=== PATIENT | female | born 1940 | race Caucasian/White ===

== ENCOUNTER 2019-07-30 10:09 | Inpatient (IN) | payer MEDICARE ==
[2019-07-30] VITALS (7 sets, daily range): BP systolic 100–111; BP diastolic 58–73
[~2019-07-30] VITALS: Ht 160 cm; Wt 49.7 kg
[2019-07-30] MEDS ORDERED: LIDOcaine 1% w/EPI 1:200,000 injection 10mL vial IM ONE (10:10)
[2019-07-30] MEDS ORDERED: TETanus/Pertussis (Acell)/Diphther VAC/PF (Tdap-Adult) 0.5ml syringe IM ONE (10:10)
[2019-07-30 10:25] LABS: BASOPHILS % (AUTO) 0.3 % (0-1); EOSINOPHILS % (AUTO) 0 % (0-6); HEMATOCRIT 40.6 % (35.0-45.0); HEMOGLOBIN 13.2 g/dl (12.0-16.0); LYMPHOCYTES # (AUTO) 2.4 X10'3 (1.1-4.8); LYMPHOCYTES % (AUTO) 16.1 % (21-51); MEAN CORPUSCULAR HEMOGLOBIN 31.7 PG (27.0-31.0); MEAN CORPUSCULAR HGB CONC 32.5 g/dL (33.0-36.5); MEAN CORPUSCULAR VOLUME 97.5 FL (78-98); MEAN PLATELET VOLUME 9.2 FL (7.4-10.4); MONOCYTES # (AUTO) 1.1 X10'3 (0-0.9); MONOCYTES % (AUTO) 7.3 % (2-12); NEUTROPHILS # (AUTO) 11.4 X10'3 (1.8-7.7); NEUTROPHILS % (AUTO) 76.3 % (42-75); PLATELET COUNT 360 X10'3 (140-440); RED BLOOD COUNT 4.16 X10'6 (4.20-5.60); RED CELL DISTRIBUTION WIDTH 13.7 % (11.5-14.5)
[2019-07-30 10:37] LABS: PARTIAL THROMBOPLASTIN TIME 22 SECONDS (22-32)
[2019-07-30 10:40] LABS: ALANINE AMINOTRANSFERASE 76 U/L (12-78); ALBUMIN 3.1 G/DL (3.4-5.0); ALBUMIN/GLOBULIN RATIO 0.8 (1.1-1.5); ALKALINE PHOSPHATASE 126 IU/L (46-116); ANION GAP 16 (8-16); ASPARTATE AMINO TRANSFERASE 52 U/L (10-37); BILIRUBIN,TOTAL 0.5 MG/DL (0.1-1.0); BLOOD UREA NITROGEN 21 MG/DL (7-18); BUN/CREATININE RATIO 16.8 (6.6-38.0); CALCIUM 8.8 MG/DL (8.5-10.1); CHLORIDE 101 MMOL/L (99-107); CREATININE 1.25 MG/DL (0.40-0.90); GLUCOSE 218 MG/DL (70-104); POTASSIUM 4.1 MMOL/L (3.5-5.1); SODIUM 138 MMOL/L (135-145); TOTAL PROTEIN 7.2 G/DL (6.4-8.2); eGFR 41 ML/MIN
[2019-07-30] MEDS ORDERED: azithromycin 250mg tablet PO ONE (11:40)
[2019-07-30] MEDS ORDERED: CefTRIAXone 2gm/D5W 50ml 50 ML IV ONE (11:40)
[2019-07-30 12:31] LABS: HEMOGLOBIN A1C 5.7 % (4.5-6.2)
[2019-07-30] MEDS ORDERED: mag hydrox/Alum hydrox/simeth 30ml oral suspension PO PRN (12:35)
[2019-07-30] MEDS ORDERED: guaiFENesin/DM/phenylephrine syrup 120ml bottle PO PRN (12:35)
[2019-07-30] MEDS ORDERED: magnesium Cl slow-release 64mg tablet PO PRN (12:35)
[2019-07-30] MEDS ORDERED: morphine 2 MG/ML inj. syringe IV PRN (12:35)
[2019-07-30] MEDS ORDERED: HYDROcodone/acetaminophen 5mg/325mg tablet PO PRN (12:35)
[2019-07-30] MEDS ORDERED: magnesium 4gm in 100ml NS 100 ML IV PRN (12:35)
[2019-07-30] MEDS ORDERED: potassium Cl 20 mEq SR tablet PO PRN ×2 (12:35)
[2019-07-30] MEDS ORDERED: potassium CL 10mEq/100ml bag 100 ML IV PRN ×2 (12:35)
[2019-07-30] MEDS ORDERED: magnesium 2GM in 50ml NS 50 ML IV PRN (12:35)
[2019-07-30] MEDS ORDERED: ondansetron/PF 4mg/2ml inj IV PRN (12:35)
[2019-07-30] MEDS ORDERED: acetaminophen 325mg tablet PO PRN ×2 (12:35)
[2019-07-30] MEDS ORDERED: ASPI-974 PO (12:53)
[2019-07-30] MEDS: normal saline 1000ml 1,000 ML IV SCH (12:54)
[2019-07-30 13:27] LABS: CLARITY,URINE SLIGHTLY CLOUDY (Clear); COLOR,URINE YELLOW (Yellow); GLUCOSE, URINE NEGATIVE (Neg); KETONES,URINE NEGATIVE (Neg); LEUKOCYTE ESTERASE ,URINE NEGATIVE (Neg); NITRITES, URINE NEGATIVE (Neg); OCCULT BLOOD,URINE NEGATIVE (Neg); PROTEIN,URINE 100 mg/dl (Neg); UROBILINOGEN,URINE 0.2 E.U/dL (0.2-1.0)
[2019-07-30 13:28] LABS: UA COLLECTION TYPE CLN CATCH MIDSTREAM
[2019-07-30 13:39] LABS: BACTERIA,URINE FEW /HPF (Neg); RBC,URINE NONE SEEN /HPF (0-2)
[2019-07-30 13:41] LABS: SQUAMOUS EPITHELIAL CELL,UR FEW /LPF (FEW)
[2019-07-30 13:42] LABS: CELLULAR CAST 0-4 /LPF (NEGATIVE); HYALINE CASTS >30 /LPF (NEGATIVE); MUCUS STRANDS NONE SEEN /LPF (Neg)
--- NOTE | 2019-07-30 15:07 | NUR ---
Patient in room ED 5. I have received report from Shantel PEDROZA and had the opportunity to ask questions and assume patient care.
--- NOTE | 2019-07-30 18:00 | NUR ---
Patient in room ORTHO 4021. I have received report from MANNY and had the opportunity to ask questions and assume patient care.
--- NOTE | 2019-07-30 18:29 | NUR ---
Problems reprioritized. Patient report given, questions answered & plan of care reviewed with Felisha PEDROZA.
--- NOTE | 2019-07-30 18:50 | NUR ---
Dr. Anthony has been called regarding pt. Lactic acid off 4.8 . said to monitor pt. keep her on fluids NS 50 ml/h.We will continue with pt. care.
[2019-07-30] MEDS: lactobacillus rhamnosus 10,000 MMU CELLS/CAPSULE PO SCH (20:18)
[2019-07-30] MEDS: docusate sod 100mg capsule PO SCH (20:19)
[2019-07-30] MEDS: heparin, porcine 5000 units/ml vial SQ SCH (20:20)
[2019-07-30] MEDS ORDERED: temazepam 15mg capsule PO PRN (21:00)
[2019-07-30] MEDS: albuterol 2.5 MG/3 ML nebule NEB SCH (21:24)
--- NOTE | 2019-07-30 22:32 | NUR ---
Problems reprioritized. Patient report given, questions answered & plan of care reviewed with
--- NOTE | 2019-07-30 22:50 | NUR ---
Gave report to shira ricci, xfer pt via w/c with belongings to room 0611u.
--- NOTE | 2019-07-30 22:50 | NUR ---
pt arived to unit with all belongings, tele still on prior to transfer will change to on unit tele, VS stable, oriented pt to room
[2019-07-31] VITALS (7 sets, daily range): BP systolic 90–128; BP diastolic 48–87
[2019-07-31] MEDS: albuterol 2.5 MG/3 ML nebule NEB SCH ×4 (02:00→20:38)
--- NOTE | 2019-07-31 02:20 | NUR ---
I have reviewed and agree with Jovon Oshea RN assessment.
[2019-07-31 05:22] LABS: BASOPHILS % (AUTO) 0.2 % (0-1); EOSINOPHILS % (AUTO) 0 % (0-6); HEMATOCRIT 38.1 % (35.0-45.0); HEMOGLOBIN 12.4 g/dl (12.0-16.0); LYMPHOCYTES # (AUTO) 1.6 X10'3 (1.1-4.8); LYMPHOCYTES % (AUTO) 12.5 % (21-51); MEAN CORPUSCULAR HEMOGLOBIN 32.1 PG (27.0-31.0); MEAN CORPUSCULAR HGB CONC 32.6 g/dL (33.0-36.5); MEAN CORPUSCULAR VOLUME 98.4 FL (78-98); MEAN PLATELET VOLUME 9.6 FL (7.4-10.4); MONOCYTES # (AUTO) 1.4 X10'3 (0-0.9); MONOCYTES % (AUTO) 10.8 % (2-12); NEUTROPHILS # (AUTO) 9.7 X10'3 (1.8-7.7); NEUTROPHILS % (AUTO) 76.5 % (42-75); PLATELET COUNT 349 X10'3 (140-440); RED BLOOD COUNT 3.88 X10'6 (4.20-5.60); RED CELL DISTRIBUTION WIDTH 13.6 % (11.5-14.5); WHITE BLOOD COUNT 12.6 X10'3 (4.5-11.0)
[2019-07-31 05:46] LABS: ALBUMIN 2.8 G/DL (3.4-5.0); ANION GAP 12 (8-16); BLOOD UREA NITROGEN 26 MG/DL (7-18); BUN/CREATININE RATIO 22.8 (6.6-38.0); CALCIUM 8.8 MG/DL (8.5-10.1); CHLORIDE 106 MMOL/L (99-107); CREATININE 1.14 MG/DL (0.40-0.90); GLUCOSE 156 MG/DL (70-104); MAGNESIUM 2.2 MG/DL (1.5-2.4); POTASSIUM 4.6 MMOL/L (3.5-5.1); SODIUM 140 MMOL/L (135-145); TOTAL CARBON DIOXIDE 22.5 MMOL/L (24-32); eGFR 46 ML/MIN
--- NOTE | 2019-07-31 06:10 | NUR ---
Patient in room PCU 3025. I have received report from Wes RN and had the opportunity to ask questions and assume patient care.
--- NOTE | 2019-07-31 06:41 | NUR ---
Problems reprioritized. Patient report given, questions answered & plan of care reviewed with Lawrence Valencia RN.
[2019-07-31] MEDS: docusate sod 100mg capsule PO SCH ×2 (08:00→20:00)
[2019-07-31] MEDS ORDERED: aspirin 325mg tablet PO SCH (08:00)
[2019-07-31] MEDS: K and/or MAG REPLACEMENT MC SCH (08:00)
[2019-07-31] MEDS: lactobacillus rhamnosus 10,000 MMU CELLS/CAPSULE PO SCH ×2 (08:26→20:20)
[2019-07-31] MEDS: CefTRIAXone 2gm/D5W 50ml 50 ML IV SCH (08:27)
[2019-07-31] MEDS: normal saline 1000ml 1,000 ML IV SCH (08:35)
[2019-07-31] MEDS: heparin, porcine 5000 units/ml vial SQ SCH ×2 (09:06→20:21)
[2019-07-31] MEDS ORDERED: metoprolol tartrate 1mg/ml inj IV ONE (10:00)
[2019-07-31] MEDS ORDERED: adenosine 3mg/ml 2ml vial IV ONE (10:00)
--- NOTE | 2019-07-31 18:10 | NUR ---
Problems reprioritized. Patient report given, questions answered & plan of care reviewed with Emilio PEDROZA.
--- NOTE | 2019-07-31 18:50 | NUR ---
Patient in room PCU 4769X. I have received report from KASIA Bravo and had the opportunity to ask questions and assume patient care. Pt is Al 7 O X4, denies CP, dizziness, n/v, rated pain 0/10. 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 Will continue to monitor
--- NOTE | 2019-07-31 23:03 | NUR ---
Patient is being transferred to [facility]. Provided report to KASIA Chairez. Pt is alert and oriented X4, and in stable condition at time of transfer.
--- NOTE | 2019-07-31 23:10 | NUR ---
Patient in room MED 308. I have received report from PRESSING MACHINE OPERATOR and had the opportunity to ask questions and assume patient care. pt arrived to unit via wheelchair, no distress noted. tucked in bed, fall precautions maintained.
[2019-08-01] VITALS (16 sets, daily range): BP systolic 97–122; BP diastolic 52–81
[2019-08-01] MEDS: albuterol 2.5 MG/3 ML nebule NEB SCH ×5 (03:00→21:23)
[2019-08-01] MEDS: normal saline 1000ml 1,000 ML IV SCH ×2 (05:04→16:03)
[2019-08-01 05:35] LABS: BASOPHILS % (AUTO) 0.2 % (0-1); EOSINOPHILS % (AUTO) 0 % (0-6); HEMATOCRIT 36.4 % (35.0-45.0); HEMOGLOBIN 11.9 g/dl (12.0-16.0); LYMPHOCYTES # (AUTO) 2.3 X10'3 (1.1-4.8); LYMPHOCYTES % (AUTO) 16.2 % (21-51); MEAN CORPUSCULAR HEMOGLOBIN 31.7 PG (27.0-31.0); MEAN CORPUSCULAR HGB CONC 32.6 g/dL (33.0-36.5); MEAN CORPUSCULAR VOLUME 97.2 FL (78-98); MEAN PLATELET VOLUME 9.6 FL (7.4-10.4); MONOCYTES # (AUTO) 1.7 X10'3 (0-0.9); MONOCYTES % (AUTO) 12.3 % (2-12); NEUTROPHILS % (AUTO) 71.3 % (42-75); PLATELET COUNT 337 X10'3 (140-440); RED BLOOD COUNT 3.75 X10'6 (4.20-5.60); RED CELL DISTRIBUTION WIDTH 13.4 % (11.5-14.5)
--- NOTE | 2019-08-01 06:00 | NUR ---
Patient in room CICU 2013. I have received report from Salma PEDROZA and had the opportunity to ask questions and assume patient care.
[2019-08-01 06:06] LABS: ALBUMIN 2.8 G/DL (3.4-5.0); ANION GAP 13 (8-16); BLOOD UREA NITROGEN 40 MG/DL (7-18); BUN/CREATININE RATIO 31.3 (6.6-38.0); CALCIUM 8.4 MG/DL (8.5-10.1); CHLORIDE 101 MMOL/L (99-107); CREATININE 1.28 MG/DL (0.40-0.90); GLUCOSE 133 MG/DL (70-104); MAGNESIUM 2.2 MG/DL (1.5-2.4); POTASSIUM 4.6 MMOL/L (3.5-5.1); SODIUM 136 MMOL/L (135-145); TOTAL CARBON DIOXIDE 21.8 MMOL/L (24-32); eGFR 40 ML/MIN
--- NOTE | 2019-08-01 07:30 | NUR ---
Patient up to commode. States "I don't feel like I'm going to make it through the night" asked why patient felt that way but she was unable to verbalize.Denied chest pain. Visibly SOB upon return to bed, unable to lie flat or lean back with HOB in high folwers. HR SVT at 140-150. Charge nurse in to assess patient and it was decided that MD needed to be called to bedside.
--- NOTE | 2019-08-01 07:43 | NUR ---
PAGER ID: [phone] MESSAGE: [phone]: MARIPOSA - CAN YOU COME TO BEDSIDE. POSSIBLE RAPID RESPONSE. TY NURSE ADELINA/CHEL [id number]
--- NOTE | 2019-08-01 07:49 | NUR ---
RESPIRATORY PAGED FOR BREATHING TREATMENT
[2019-08-01] MEDS: K and/or MAG REPLACEMENT MC SCH (08:00)
[2019-08-01] MEDS: docusate sod 100mg capsule PO SCH ×2 (08:00→19:54)
[2019-08-01] MEDS: metoprolol tartrate 1mg/ml inj IV SCH ×2 (08:00→08:13)
[2019-08-01] MEDS: heparin, porcine 5000 units/ml vial SQ SCH (08:00)
[2019-08-01] MEDS: lactobacillus rhamnosus 10,000 MMU CELLS/CAPSULE PO SCH (08:00)
[2019-08-01] MEDS: CefTRIAXone 2gm/D5W 50ml 50 ML IV SCH (08:00)
[2019-08-01] MEDS ORDERED: metoprolol tartrate 1mg/ml inj IV ONE (08:15)
--- NOTE | 2019-08-01 08:30 | NUR ---
PAGER ID: [phone] MESSAGE: [phone]: MARIPOSA - NEED YOU AT BEDSIDE AGAIN. NELDA ORDERED MORE ADENOSINE. TY
--- NOTE | 2019-08-01 08:36 | NUR ---
PAGER ID: [phone] MESSAGE: [phone]: MARIPOSA - WE NEED YOU AT BEDSIDE PLEASE. TY
--- NOTE | 2019-08-01 08:40 | NUR ---
PAGER ID: [phone] MESSAGE: [phone]: MARIPOSA - PLEASE TO BEDSIDE NOW. TY
[2019-08-01] MEDS ORDERED: amiodarone 150mg/dext, iso-os 100 ML IV ONE (09:00)
[2019-08-01] MEDS: amiodarone/D5 360MG/200ML BAG 200 ML IV SCH ×3 (09:10→19:54)
--- NOTE | 2019-08-01 09:50 | NUR ---
Patient transported to ICU.
--- NOTE | 2019-08-01 09:50 | NUR ---
Problems reprioritized. Patient report given, questions answered & plan of care reviewed with Radha PEDROZA.
[2019-08-01] MEDS: insulin regular, human 100 UNIT in normal saline 100ml IV soln 100 ML IV SCH ×2 (09:52)
[2019-08-01] MEDS ORDERED: magnesium 2GM in 50ml NS 50 ML IV PRN ×2 (09:55→12:20)
[2019-08-01] MEDS ORDERED: potassium Cl 20mEq/100mL bag 100 ML IV PRN (09:55)
[2019-08-01] MEDS ORDERED: gabapentin 400mg capsule PO ONE (09:55)
[2019-08-01] MEDS ORDERED: magnesium 4gm in 100ml NS 100 ML IV PRN ×2 (09:55→12:20)
[2019-08-01] MEDS ORDERED: potassium Cl 20 mEq SR tablet PO PRN ×2 (09:55→12:20)
[2019-08-01] MEDS ORDERED: MALTODEXTRIN/FRUCTOSE 0.68 KCAL/ML LIQUID 296ML BOTTLE PO ONE (09:55)
[2019-08-01] MEDS ORDERED: dextrose 50%-water 50ml dispensing syringe IV PRN ×2 (09:55→12:20)
[2019-08-01] MEDS ORDERED: MESSAGE TO NURSING PO ONE ×5 (09:55→10:00)
[2019-08-01] MEDS ORDERED: insulin glargine (Lantus) pen - multi-dose SQ PRN (09:55)
[2019-08-01] MEDS ORDERED: midazolam 2 mg/2 ml injection ONE (11:33)
[2019-08-01] MEDS ORDERED: fentaNYL/PF 50MCG/1 ML 2ML syringe ONE (11:33)
[2019-08-01] MEDS ORDERED: ketamine 50mg/5ml syringe ONE (11:33)
[2019-08-01] MEDS ORDERED: phenylephrine 10mg/ml inj. ONE (11:36)
[2019-08-01] MEDS ORDERED: rocuronium 10mg/ml inj IV ONE (11:36)
[2019-08-01] MEDS ORDERED: sevoflurane 250ml liquid IH ONE (11:36)
[2019-08-01] MEDS ORDERED: labetalol 20mg/4ml (5mg/ml) syringe IV ONE (11:36)
--- NOTE | 2019-08-01 11:40 | NUR ---
Pt taken to surgery accompanied by Dr. Larsen's OR team
[2019-08-01] MEDS ORDERED: ceFAZolin 1000mg inj ONE ×2 (11:49)
[2019-08-01] MEDS ORDERED: vancomycin 1,000mg inj ONE (11:49)
[2019-08-01] MEDS ORDERED: BUPIVAcaine/PF 2.5 mg/ml (0.25%) 30ml vial ONE (11:59)
[2019-08-01] MEDS ORDERED: sugammadex 200mg/2ml injection IV ONE (12:13)
[2019-08-01] MEDS ORDERED: sodium chloride 0.45% 1,000 ML IV SCH (12:18)
[2019-08-01] MEDS ORDERED: metoclopramide 5 mg/ml inj IV PRN (12:20)
[2019-08-01] MEDS ORDERED: pantoprazole 40 MG vial IV ONE (12:20)
[2019-08-01] MEDS ORDERED: morphine 4 MG/ML inj SYRINge IV PRN ×2 (12:20)
[2019-08-01] MEDS ORDERED: magnesium hydroxide 30ml (MOM) UD suspension PO PRN (12:20)
[2019-08-01] MEDS ORDERED: acetaminophen 325mg tablet PO PRN (12:20)
[2019-08-01] MEDS ORDERED: HYDROcodone/acetaminophen 10/325mg tab PO PRN ×2 (12:20)
[2019-08-01] MEDS ORDERED: albumin (Human) 5% 250ml 250 ML IV PRN (12:20)
[2019-08-01] MEDS ORDERED: sodium phosphate inj. 30 MMOL in dextrose 5%-water 250 ML IV PRN (12:20)
[2019-08-01] MEDS ORDERED: normal saline 250ml IV soln 250 ML IV PRN (12:20)
[2019-08-01] MEDS ORDERED: insulin regular, human inj. 100 UNITS in normal saline 100ml IV soln 100 ML IV SCH ×2 (12:20)
[2019-08-01] MEDS ORDERED: Neutra Phos packet PO PRN (12:20)
[2019-08-01] MEDS ORDERED: sodium phosphate inj. 15 MMOL in dextrose 5%-water 150 ML IV PRN (12:20)
[2019-08-01] MEDS ORDERED: ondansetron/PF 4mg/2ml inj IV PRN (12:20)
[2019-08-01] MEDS ORDERED: FENTANYL-0.9 % NACL/PF 100 ML IV PRN (12:43)
[2019-08-01] MEDS ORDERED: midazolam 100mg in NS 100ml 100 ML IV PRN (12:43)
[2019-08-01] MEDS ORDERED: midazolam 2 mg/2 ml injection IV ONE (12:45)
[2019-08-01] MEDS ORDERED: fentaNYL/PF 50MCG/1 ML 2ML syringe IV PRN (12:45)
[2019-08-01] MEDS ORDERED: ondansetron/PF 4mg/2ml inj ONE (13:00)
[2019-08-01] MEDS: insulin Lispro (HumaLOG) vial - multi-dose SQ SCH ×2 (13:00→18:00)
--- NOTE | 2019-08-01 13:00 | NUR ---
pt back from OR on vent. Fent and versed started. A line zeroed and transduced, BP matching cuff pressure 70s/40s. Dr. Flores at bedside to place central line. Pt slowly stabilizing. 50cc out of chest tube at this time.
--- NOTE | 2019-08-01 13:01 | NUR ---
Nutrition consult: Pt with pericardial effusion to get pericardial window placed today. Pt would benefit from protein education prior to discharge once stable. Will continue to follow. Addendum: 08/01/19 at [address] Amended: Links added.
[2019-08-01] MEDS ORDERED: NORepinephrine 8mg/ 250ml NS 250 ML IV SCH (13:30)
[2019-08-01 14:29] LABS: BASOPHILS % (AUTO) 0.2 % (0-1); EOSINOPHILS % (AUTO) 0 % (0-6); HEMATOCRIT 35.4 % (35.0-45.0); HEMOGLOBIN 11.6 g/dl (12.0-16.0); LYMPHOCYTES # (AUTO) 1.9 X10'3 (1.1-4.8); LYMPHOCYTES % (AUTO) 12.5 % (21-51); MEAN CORPUSCULAR HGB CONC 32.8 g/dL (33.0-36.5); MEAN CORPUSCULAR VOLUME 97.6 FL (78-98); MEAN PLATELET VOLUME 8.7 FL (7.4-10.4); MONOCYTES # (AUTO) 1.3 X10'3 (0-0.9); MONOCYTES % (AUTO) 8.6 % (2-12); NEUTROPHILS # (AUTO) 11.7 X10'3 (1.8-7.7); NEUTROPHILS % (AUTO) 78.7 % (42-75); PLATELET COUNT 286 X10'3 (140-440); RED BLOOD COUNT 3.63 X10'6 (4.20-5.60); RED CELL DISTRIBUTION WIDTH 13.3 % (11.5-14.5); WHITE BLOOD COUNT 14.8 X10'3 (4.5-11.0)
[2019-08-01 14:46] LABS: PARTIAL THROMBOPLASTIN TIME 22 SECONDS (22-32)
[2019-08-01 14:53] LABS: ALANINE AMINOTRANSFERASE 156 U/L (12-78); ALBUMIN 2.3 G/DL (3.4-5.0); ALBUMIN/GLOBULIN RATIO 0.7 (1.1-1.5); ALKALINE PHOSPHATASE 151 IU/L (46-116); ANION GAP 13 (8-16); ASPARTATE AMINO TRANSFERASE 190 U/L (10-37); BILIRUBIN,TOTAL 0.2 MG/DL (0.1-1.0); BLOOD UREA NITROGEN 43 MG/DL (7-18); BUN/CREATININE RATIO 32.6 (6.6-38.0); CALCIUM 7.2 MG/DL (8.5-10.1); CHLORIDE 105 MMOL/L (99-107); CREATININE 1.32 MG/DL (0.40-0.90); GLUCOSE 157 MG/DL (70-104); MAGNESIUM 2.2 MG/DL (1.5-2.4); PHOSPHORUS 5.3 MG/DL (2.3-4.5); POTASSIUM 4.5 MMOL/L (3.5-5.1); SODIUM 139 MMOL/L (135-145); TOTAL CARBON DIOXIDE 20.8 MMOL/L (24-32); TOTAL PROTEIN 5.7 G/DL (6.4-8.2); eGFR 39 ML/MIN
[2019-08-01] MEDS: ceFAZolin 1GM/D5W- ADD-VANTAGE 50 ML IV SCH ×2 (16:01→23:50)
[2019-08-01] MEDS: gabapentin 300mg capsule PO SCH ×2 (16:03→21:48)
--- NOTE | 2019-08-01 18:27 | NUR ---
Problems reprioritized. Patient report given, questions answered & plan of care reviewed with KASIA Fair.
--- NOTE | 2019-08-01 18:30 | NUR ---
Patient in room CICU 2013. I have received report from MAMIE PEDROZA and had the opportunity to ask questions and assume patient care.
[2019-08-01] MEDS: mupirocin 2% nasal ointment 1gm UD NS SCH (19:53)
[2019-08-01] MEDS ORDERED: mupirocin 2% ointment 22GM NS SCH (20:00)
[2019-08-01 20:44] LABS: BASOPHILS % (AUTO) 0.1 % (0-1); EOSINOPHILS % (AUTO) 0 % (0-6); HEMATOCRIT 33.4 % (35.0-45.0); HEMOGLOBIN 10.9 g/dl (12.0-16.0); LYMPHOCYTES % (AUTO) 15.1 % (21-51); MEAN CORPUSCULAR HEMOGLOBIN 31.9 PG (27.0-31.0); MEAN CORPUSCULAR HGB CONC 32.7 g/dL (33.0-36.5); MEAN CORPUSCULAR VOLUME 97.5 FL (78-98); MEAN PLATELET VOLUME 9.1 FL (7.4-10.4); MONOCYTES # (AUTO) 1.4 X10'3 (0-0.9); MONOCYTES % (AUTO) 10.9 % (2-12); NEUTROPHILS # (AUTO) 9.6 X10'3 (1.8-7.7); NEUTROPHILS % (AUTO) 73.9 % (42-75); PLATELET COUNT 274 X10'3 (140-440); RED BLOOD COUNT 3.42 X10'6 (4.20-5.60); RED CELL DISTRIBUTION WIDTH 13.5 % (11.5-14.5)
[2019-08-01 20:53] LABS: ALBUMIN 2.2 G/DL (3.4-5.0); ANION GAP 10 (8-16); CALCIUM 7.2 MG/DL (8.5-10.1); CHLORIDE 106 MMOL/L (99-107); CREATININE 1.08 MG/DL (0.40-0.90); GLUCOSE 98 MG/DL (70-104); MAGNESIUM 2.2 MG/DL (1.5-2.4); PHOSPHORUS 3.8 MG/DL (2.3-4.5); POTASSIUM 4.3 MMOL/L (3.5-5.1); SODIUM 138 MMOL/L (135-145); TOTAL CARBON DIOXIDE 21.7 MMOL/L (24-32); eGFR 49 ML/MIN
[2019-08-01 21:01] LABS: BLOOD UREA NITROGEN 39 MG/DL (7-18); BUN/CREATININE RATIO 36.1 (6.6-38.0)
[2019-08-02] VITALS (22 sets, daily range): BP systolic 96–141; BP diastolic 47–67
--- NOTE | 2019-08-02 01:24 | NUR ---
pt CVL was leaking for a short period of time. CVP still draws and flushes with adequate waveform. redressed site and repositioned the pt to her other side, it appears to have stopped leaking. had October COPY DIRECTOR assess, she said it appears to be working and reviewed CXR. she said to cont to monitor for increased leaking
[2019-08-02] MEDS: normal saline 1000ml 1,000 ML IV SCH ×2 (02:00→13:45)
[2019-08-02] MEDS: amiodarone/D5 360MG/200ML BAG 200 ML IV SCH ×4 (03:10→20:08)
[2019-08-02] MEDS: albuterol 2.5 MG/3 ML nebule NEB SCH ×3 (03:11→14:00)
[2019-08-02 03:34] LABS: BASOPHILS % (AUTO) 0.1 % (0-1); EOSINOPHILS % (AUTO) 0 % (0-6); HEMATOCRIT 31.1 % (35.0-45.0); HEMOGLOBIN 10.5 g/dl (12.0-16.0); LYMPHOCYTES # (AUTO) 1.5 X10'3 (1.1-4.8); LYMPHOCYTES % (AUTO) 13.9 % (21-51); MEAN CORPUSCULAR HEMOGLOBIN 32.6 PG (27.0-31.0); MEAN CORPUSCULAR HGB CONC 33.6 g/dL (33.0-36.5); MEAN PLATELET VOLUME 8.8 FL (7.4-10.4); MONOCYTES # (AUTO) 1.2 X10'3 (0-0.9); MONOCYTES % (AUTO) 10.7 % (2-12); NEUTROPHILS # (AUTO) 8.3 X10'3 (1.8-7.7); NEUTROPHILS % (AUTO) 75.3 % (42-75); PLATELET COUNT 231 X10'3 (140-440); RED BLOOD COUNT 3.21 X10'6 (4.20-5.60); RED CELL DISTRIBUTION WIDTH 13.4 % (11.5-14.5)
[2019-08-02 04:03] LABS: PARTIAL THROMBOPLASTIN TIME 24 SECONDS (22-32)
[2019-08-02 04:05] LABS: ALANINE AMINOTRANSFERASE 130 U/L (12-78); ALBUMIN/GLOBULIN RATIO 0.6 (1.1-1.5); ALKALINE PHOSPHATASE 114 IU/L (46-116); ANION GAP 10 (8-16); ASPARTATE AMINO TRANSFERASE 118 U/L (10-37); BILIRUBIN,TOTAL 0.1 MG/DL (0.1-1.0); BLOOD UREA NITROGEN 35 MG/DL (7-18); BUN/CREATININE RATIO 36.8 (6.6-38.0); CALCIUM 7.6 MG/DL (8.5-10.1); CHLORIDE 108 MMOL/L (99-107); CREATININE 0.95 MG/DL (0.40-0.90); GLUCOSE 71 MG/DL (70-104); MAGNESIUM 2.4 MG/DL (1.5-2.4); PHOSPHORUS 3.6 MG/DL (2.3-4.5); SODIUM 140 MMOL/L (135-145); TOTAL CARBON DIOXIDE 21.9 MMOL/L (24-32); TOTAL PROTEIN 5.1 G/DL (6.4-8.2); eGFR 57 ML/MIN
--- NOTE | 2019-08-02 06:22 | NUR ---
Problems reprioritized. Patient report given, questions answered & plan of care reviewed with TRAVIS PEDROZA.
[2019-08-02] MEDS ORDERED: metoprolol tartrate 12.5mg (1/2 tablet) PO SCH (08:00)
[2019-08-02] MEDS: docusate sod 100mg capsule PO SCH ×3 (08:00→20:09)
[2019-08-02] MEDS: mupirocin 2% nasal ointment 1gm UD NS SCH (08:15)
[2019-08-02] MEDS: gabapentin 300mg capsule PO SCH ×4 (08:15→20:49)
[2019-08-02] MEDS: aspirin 325mg tablet, delayed-release (Ecotrin) PO SCH (08:15)
[2019-08-02] MEDS: CefTRIAXone 2gm/D5W 50ml 50 ML IV SCH (08:16)
[2019-08-02] MEDS: insulin Lispro (HumaLOG) vial - multi-dose SQ SCH ×3 (09:00→18:00)
[2019-08-02] MEDS: ceFAZolin 1GM/D5W- ADD-VANTAGE 50 ML IV SCH ×2 (09:15→19:18)
[2019-08-02] MEDS ORDERED: racepinephrine 11.25mg/0.5ml nebule NEB PRN (10:15)
[2019-08-02] MEDS ORDERED: ipratropium/albuterol 3ml nebule NEB PRN (10:15)
[2019-08-02] MEDS ORDERED: mineral oil/petrolatum ophthal oint EACHEYE SCH (14:00)
[2019-08-02] MEDS: ipratropium/albuterol 3ml nebule NEB SCH ×2 (14:46→20:14)
[2019-08-02 15:21] LABS: ABG BASE EXCESS -10.9 mmol/L (-2.0-3.0); ABG HCO3 18.5 mmol/L (22.0-26.0); ABG OXYGEN SATURATION 90.4 % (95-98); ABG PCO2 (T) 57.5 mmHg (35.0-45.0); ABG PH (T) 7.128 (7.350-7.450); ABG PO2 (T) 75.9 mmHg (83-108); FLOW 15 L/min; FMetHb 0.3 % (0.3-1.12); FO2Hb 90.1 % (94-100); PATIENT TEMPERATURE 37.5; TOTAL HEMOGLOBIN 12.8 G/dl (12.0-16.0)
--- NOTE | 2019-08-02 15:30 | NUR ---
Patient up to walk in hallway after being up in chair. O2 sats to 77% with very long recovery period. Required more O2 up to Venti mask at 50%. RT called for tx and abg. pCO2 was 57.5 with pO2 of 75.9. Pt became very lethargic and not following commands. Placed on Bipap at 100% fiO2 immediately after abg. Dr Flores to bedside with further orders. bp's stable, no ectopy.
[2019-08-02 16:11] LABS: ABG BASE EXCESS -8.2 mmol/L (-2.0-3.0); ABG HCO3 18.9 mmol/L (22.0-26.0); ABG OXYGEN SATURATION 93.8 % (95-98); ABG PCO2 (T) 46.2 mmHg (35.0-45.0); ABG PH (T) 7.233 (7.350-7.450); ABG PO2 (T) 83.6 mmHg (83-108); FCOHb 0.1 % (0.5-1.5); FMetHb 0.1 % (0.3-1.12); FO2Hb 93.6 % (94-100); MINUTE VOLUME 12 L/min; PATIENT TEMPERATURE 37.5; RESPIRATORY RATE 20 b/min; RESPIRATORY RATE (OBSERVED) 21 b/min; TIDAL VOLUME 592 mL; TOTAL HEMOGLOBIN 11.9 G/dl (12.0-16.0)
--- NOTE | 2019-08-02 16:15 | NUR ---
Called Rashad Reynolds to update on patient's condition.
--- NOTE | 2019-08-02 16:30 | NUR ---
Pt more awake, asking for the baseball game back on. Second abg's resulted at 1609 and have improved. pCO2 to 46.2
--- NOTE | 2019-08-02 16:40 | NUR ---
Called patient's daughter Samira to update on patients condition.
--- NOTE | 2019-08-02 19:00 | NUR ---
Received patient report from Scarlet PEDROZA.
[2019-08-02] MEDS: insulin regular, human 100 UNIT in normal saline 100ml IV soln 100 ML IV SCH ×2 (19:12)
--- NOTE | 2019-08-02 20:58 | NUR ---
Arterial line to right wrist with poor waveform, unable to flush or draw blood back. Art line removed, pressure held. Weaning bipap fiO2 as tolerated per [employer]IST
[2019-08-03] VITALS (23 sets, daily range): BP systolic 107–146; BP diastolic 49–80
[2019-08-03] MEDS: ceFAZolin 1GM/D5W- ADD-VANTAGE 50 ML IV SCH ×2 (00:59→03:57)
[2019-08-03 01:31] LABS: ABG BASE EXCESS -3.3 mmol/L (-2.0-3.0); ABG HCO3 21.3 mmol/L (22.0-26.0); ABG OXYGEN SATURATION 92.6 % (95-98); ABG PCO2 (T) 36.4 mmHg (35.0-45.0); ABG PH (T) 7.383 (7.350-7.450); ABG PO2 (T) 64.3 mmHg (83-108); FCOHb 0.3 % (0.5-1.5); FMetHb 0.2 % (0.3-1.12); FO2Hb 92.1 % (94-100); MINUTE VOLUME 14 L/min; PATIENT TEMPERATURE 36.9; RESPIRATORY RATE 20 b/min; RESPIRATORY RATE (OBSERVED) 30 b/min; TOTAL HEMOGLOBIN 11.8 G/dl (12.0-16.0)
[2019-08-03 02:13] LABS: BASOPHILS % (AUTO) 0.2 % (0-1); EOSINOPHILS % (AUTO) 0.1 % (0-6); HEMATOCRIT 32.3 % (35.0-45.0); HEMOGLOBIN 10.7 g/dl (12.0-16.0); LYMPHOCYTES # (AUTO) 1.2 X10'3 (1.1-4.8); LYMPHOCYTES % (AUTO) 11.1 % (21-51); MEAN CORPUSCULAR HGB CONC 33.1 g/dL (33.0-36.5); MEAN CORPUSCULAR VOLUME 96.6 FL (78-98); MEAN PLATELET VOLUME 8.4 FL (7.4-10.4); MONOCYTES # (AUTO) 1.1 X10'3 (0-0.9); NEUTROPHILS # (AUTO) 8.9 X10'3 (1.8-7.7); NEUTROPHILS % (AUTO) 78.6 % (42-75); PLATELET COUNT 224 X10'3 (140-440); RED BLOOD COUNT 3.34 X10'6 (4.20-5.60); RED CELL DISTRIBUTION WIDTH 13.5 % (11.5-14.5); WHITE BLOOD COUNT 11.3 X10'3 (4.5-11.0)
[2019-08-03] MEDS: ipratropium/albuterol 3ml nebule NEB SCH ×4 (02:23→20:41)
[2019-08-03 02:30] LABS: ANION GAP 8 (8-16); BLOOD UREA NITROGEN 21 MG/DL (7-18); BUN/CREATININE RATIO 26.3 (6.6-38.0); CALCIUM 7.8 MG/DL (8.5-10.1); CHLORIDE 107 MMOL/L (99-107); GLUCOSE 142 MG/DL (70-104); MAGNESIUM 2.5 MG/DL (1.5-2.4); PHOSPHORUS 2.8 MG/DL (2.3-4.5); POTASSIUM 3.8 MMOL/L (3.5-5.1); SODIUM 139 MMOL/L (135-145); TOTAL CARBON DIOXIDE 24.1 MMOL/L (24-32); eGFR 69 ML/MIN
[2019-08-03] MEDS: amiodarone/D5 360MG/200ML BAG 200 ML IV SCH (03:26)
[2019-08-03] MEDS ORDERED: ceFAZolin 1GM/D5W- ADD-VANTAGE 50 ML IV ONE (04:00)
[2019-08-03 05:36] LABS: ABG BASE EXCESS -14.7 mmol/L (-2.0-3.0); ABG HCO3 14.5 mmol/L (22.0-26.0); ABG OXYGEN SATURATION 94.9 % (95-98); ABG PCO2 (T) 47.1 mmHg (35.0-45.0); ABG PH (T) 7.106 (7.350-7.450); ABG PO2 (T) 102.1 mmHg (83-108); FCOHb 0.3 % (0.5-1.5); FMetHb 0.2 % (0.3-1.12); FO2Hb 94.4 % (94-100); MINUTE VOLUME 8 L/min; PEEP 5 cm H2O; RESPIRATORY RATE 12 b/min; RESPIRATORY RATE (OBSERVED) 12 b/min; TIDAL VOLUME 400 mL; TOTAL HEMOGLOBIN 12.6 G/dl (12.0-16.0)
[2019-08-03 05:36] LABS: ABG BASE EXCESS -6.5 mmol/L (-2.0-3.0); ABG OXYGEN SATURATION 93.9 % (95-98); ABG PCO2 (T) 32.2 mmHg (35.0-45.0); ABG PH (T) 7.365 (7.350-7.450); ABG PO2 (T) 73.8 mmHg (83-108); FCOHb 0.3 % (0.5-1.5); FMetHb 0.1 % (0.3-1.12); FO2Hb 93.5 % (94-100); MINUTE VOLUME 7 L/min; PEEP 5 cm H2O; RESPIRATORY RATE 16 b/min; RESPIRATORY RATE (OBSERVED) 16 b/min; TIDAL VOLUME 400 mL
[2019-08-03 05:41] LABS: ABG BASE EXCESS -9.5 mmol/L (-2.0-3.0); ABG HCO3 14.7 mmol/L (22.0-26.0); ABG OXYGEN SATURATION 89.1 % (95-98); ABG PCO2 (T) 27.2 mmHg (35.0-45.0); ABG PO2 (T) 59.9 mmHg (83-108); ALLEN'S TEST Positive; FCOHb 0.3 % (0.5-1.5); FLOW 2 L/min; FMetHb 0.1 % (0.3-1.12); FO2Hb 88.7 % (94-100); PATIENT TEMPERATURE 36.6; RESPIRATORY RATE (OBSERVED) 33 b/min; TOTAL HEMOGLOBIN 12.7 G/dl (12.0-16.0)
[2019-08-03 05:41] LABS: OXYGEN SATURATION (MIXED VEN) 69.1 % (60-80); PO2 MIXED VENOUS (TEMP COR) 40.3 mmHg (35-46)
[2019-08-03] MEDS ORDERED: furosemide 40mg/4ml inj IV ONE (06:55)
[2019-08-03] MEDS: gabapentin 300mg capsule PO SCH (08:00)
[2019-08-03] MEDS: docusate sod 100mg capsule PO SCH ×2 (08:00→19:34)
--- NOTE | 2019-08-03 09:17 | NUR ---
Trial off of bipap on 2 liters nasal cannula, worked on slow deep breathing; after about 7 minutes desaturated to low 80's. Became very sob. Bipap placed back on with recovery over about 3 minutes back to O2 sats 93% on 40% fiO2. Lasix given earlier this morning with about 750 mls diuresis over 2 hours prior to trial. Lungs still coarse with dim bases. Moist cough but non productive.
[2019-08-03] MEDS: normal saline 1000ml 1,000 ML IV SCH (09:40)
[2019-08-03] MEDS ORDERED: amiodarone 150mg/dext, iso-os 100 ML IV ONE ×2 (13:15→13:20)
--- NOTE | 2019-08-03 13:30 | NUR ---
Pt tried again off bipap, was able to eat a little lunch and drink some iced tea. Off bipap total about 12 minutes before she desaturated again to 85. Went into rapid afib, rate in 150's. Dr Larsen and Rashad Reynolds rounding at the timr and ordered bolus of Amiodarone and po dosing to start. bp's stable, pt denies symptoms at the time. Back on bipap at the same settings.
[2019-08-03 14:00] LABS: ALBUMIN 2.2 G/DL (3.4-5.0); ANION GAP 7 (8-16); BLOOD UREA NITROGEN 17 MG/DL (7-18); BUN/CREATININE RATIO 23.9 (6.6-38.0); CALCIUM 7.9 MG/DL (8.5-10.1); CHLORIDE 104 MMOL/L (99-107); CREATININE 0.71 MG/DL (0.40-0.90); GLUCOSE 226 MG/DL (70-104); POTASSIUM 3.9 MMOL/L (3.5-5.1); SODIUM 138 MMOL/L (135-145); TOTAL CARBON DIOXIDE 26.8 MMOL/L (24-32); eGFR 79 ML/MIN
[2019-08-03 14:56] LABS: MAGNESIUM 2.5 MG/DL (1.5-2.4)
--- NOTE | 2019-08-03 15:44 | NUR ---
Pt converted back to sinus shortly after bolus of Amiodarone given. Rate back in 70's and patient stable. Still on bipap with sats at 95% on 40% fiO2.
[2019-08-03] MEDS: aspirin 325mg tablet, delayed-release (Ecotrin) PO SCH (15:58)
[2019-08-03] MEDS: pantoprazole 40mg Tablet.DR PO SCH (15:58)
[2019-08-03] MEDS: amiodarone 200mg tablet PO SCH ×2 (15:58→19:28)
[2019-08-03] MEDS: potassium Cl 20mEq/100mL bag 100 ML IV PRN ×2 (17:07→18:03)
--- NOTE | 2019-08-03 18:30 | NUR ---
Patient in room CICU 2013. I have received report from Blily PEDROZA and had the opportunity to ask questions and assume patient care.
[2019-08-04] VITALS (24 sets, daily range): BP systolic 105–148; BP diastolic 63–93
--- NOTE | 2019-08-04 02:00 | NUR ---
Bipap off Patient ate an icecream for a snack. Saturations held at 91% for 10 min. Had to put Bipap back on for the rhythm changed to A-fib. Patient started then to go in and out of A-fib sporadically. TOBACCO SAMPLE PULLER October notified. Will continue to monitor.
[2019-08-04] MEDS: amiodarone/D5 360MG/200ML BAG 200 ML IV SCH ×4 (02:24→19:13)
--- NOTE | 2019-08-04 02:38 | NUR ---
Patient in/out of rapid afib w/rate 140-160s; then back into SR 70s briefly; received orders for amio gtt, no bolus. HR now 141, afib; gtt started.
[2019-08-04] MEDS: ipratropium/albuterol 3ml nebule NEB SCH ×4 (02:54→20:41)
[2019-08-04 03:42] LABS: BASOPHILS % (AUTO) 0.3 % (0-1); EOSINOPHILS % (AUTO) 0.1 % (0-6); HEMATOCRIT 32.9 % (35.0-45.0); HEMOGLOBIN 11.2 g/dl (12.0-16.0); LYMPHOCYTES # (AUTO) 1.4 X10'3 (1.1-4.8); LYMPHOCYTES % (AUTO) 11.4 % (21-51); MEAN CORPUSCULAR HEMOGLOBIN 32.4 PG (27.0-31.0); MEAN CORPUSCULAR VOLUME 95.3 FL (78-98); MEAN PLATELET VOLUME 8.4 FL (7.4-10.4); MONOCYTES # (AUTO) 1.3 X10'3 (0-0.9); MONOCYTES % (AUTO) 10.3 % (2-12); NEUTROPHILS # (AUTO) 9.5 X10'3 (1.8-7.7); NEUTROPHILS % (AUTO) 77.9 % (42-75); PLATELET COUNT 256 X10'3 (140-440); RED BLOOD COUNT 3.45 X10'6 (4.20-5.60); RED CELL DISTRIBUTION WIDTH 13.9 % (11.5-14.5); WHITE BLOOD COUNT 12.2 X10'3 (4.5-11.0)
[2019-08-04 03:51] LABS: ALBUMIN 1.9 G/DL (3.4-5.0); ANION GAP 9 (8-16); BLOOD UREA NITROGEN 12 MG/DL (7-18); BUN/CREATININE RATIO 17.1 (6.6-38.0); CALCIUM 8.5 MG/DL (8.5-10.1); CHLORIDE 105 MMOL/L (99-107); GLUCOSE 119 MG/DL (70-104); MAGNESIUM 2.5 MG/DL (1.5-2.4); PHOSPHORUS 2.3 MG/DL (2.3-4.5); POTASSIUM 4.5 MMOL/L (3.5-5.1); SODIUM 141 MMOL/L (135-145); TOTAL CARBON DIOXIDE 27.1 MMOL/L (24-32); eGFR 81 ML/MIN
--- NOTE | 2019-08-04 03:59 | NUR ---
Dinner, Bipap off Patient had Bipap off for dinner and did well for 15 min., she used IS and Flutter valve but with not much strength and stating "you work me too much". Saturations were maintained above 88% for 15 min. before saturations went below 85%. Patient would like to be off Bipap more often but knows it is not possible at the moment. Will continue to monitor. Addendum: 08/04/19 at 0405 by Lety Zendejas RN Dinner time 1899 to 191408/03/19
--- NOTE | 2019-08-04 05:30 | NUR ---
End NOC note Patient has slept well tonight. Normal Sinus rhythm right now. Left arm is elevated to improve swelling. Will continue to monitor.
[2019-08-04] MEDS: normal saline 1000ml 1,000 ML IV SCH ×2 (05:40→17:52)
--- NOTE | 2019-08-04 06:30 | NUR ---
Patient in room CICU 2013. I have received report from KASIA Davidson and had the opportunity to ask questions and assume patient care.
--- NOTE | 2019-08-04 06:31 | NUR ---
Problems reprioritized. Patient report given, questions answered & plan of care reviewed with Scarlet PEDROZA.
[2019-08-04] MEDS: amiodarone 200mg tablet PO SCH (08:00)
[2019-08-04] MEDS: pantoprazole 40mg Tablet.DR PO SCH (08:07)
[2019-08-04] MEDS: aspirin 325mg tablet, delayed-release (Ecotrin) PO SCH (08:07)
[2019-08-04] MEDS: docusate sod 100mg capsule PO SCH ×2 (08:08→18:57)
[2019-08-04] MEDS ORDERED: furosemide 40mg/4ml inj IV ONE (08:15)
--- NOTE | 2019-08-04 09:58 | NUR ---
Patient off the bipap and on 2 liters nasal cannula for 75 minutes and did well with no desat, O2 90-94%. After 75 minutes pt went into rapid afib. Amiodarone already infusing at 0.5mg/hr. BP's stable and patient denying any sob or cp. Placed back on bipap at same settings. Called Dr Flores to update, no further orders. Stat mag and K sent off. Has diuresed about 850 since lasix. Rashad Reynolds called to update, already ordered cxr and echo for this morning. No further orders. Remains in afib rvr since 924. Rate in mostly 130's.
[2019-08-04 10:08] LABS: ALBUMIN 2.1 G/DL (3.4-5.0); ANION GAP 9 (8-16); BLOOD UREA NITROGEN 13 MG/DL (7-18); BUN/CREATININE RATIO 18.3 (6.6-38.0); CALCIUM 8.1 MG/DL (8.5-10.1); CHLORIDE 102 MMOL/L (99-107); CREATININE 0.71 MG/DL (0.40-0.90); GLUCOSE 144 MG/DL (70-104); MAGNESIUM 2.1 MG/DL (1.5-2.4); POTASSIUM 3.8 MMOL/L (3.5-5.1); SODIUM 139 MMOL/L (135-145); TOTAL CARBON DIOXIDE 28.1 MMOL/L (24-32); eGFR 79 ML/MIN
--- NOTE | 2019-08-04 10:24 | NUR ---
Pt back into sinus rhythm with rate in 70's, bp's stable, last 107/68. Resting on bipap with good O2 sats. CXR and Echo completed
[2019-08-04] MEDS: potassium Cl 20mEq/100mL bag 100 ML IV PRN (12:33)
--- NOTE | 2019-08-04 13:44 | NUR ---
Off Bipap for lunch, po fluids and IS/Flutter use. Worked on deep breathing. Placed back on bipap after about 20 minutes due to inability to maintain over 87% sats and short of breath. Potassium and Mag replacement in progress. No further afib since this morning.
--- NOTE | 2019-08-04 13:58 | NUR ---
Left arm improved swelling with elevation and mobility. Edematous fingers, including around ring on left hand but not yet too tight, pt educated to monitor, will make next shift aware in shift report.
--- NOTE | 2019-08-04 14:38 | NUR ---
Initial: Patient s/p subxiphoid window on 06/01. Needing bipap, per bedside RN was able to have the bipap off for about an hour before going into AFIB. Appetite is fair, PO intake 25-49%. Poor intake likely d/t her needing the bipap for a significant amount of time. Pt would benefit from protein education prior to discharge once stable. Will continue to follow. Recommend: 1. continue no concentrated sweets diet 2. routine bowel care 3. Wt per rx Addendum: 08/04/19 at [address] Amended: Links added.
--- NOTE | 2019-08-04 17:33 | NUR ---
Off bipap for about an hour and tolerated with a little fatigue but no desaturation. Worked on deep breathing, drank some liquids. Remains nsr this afternoon without any afib.
--- NOTE | 2019-08-04 18:25 | NUR ---
Patient in room CICU 2013. I have received report and had the opportunity to ask questions and assume patient care.
--- NOTE | 2019-08-04 19:00 | NUR ---
pt is A&O x 4. pt is on bipap. patient lungs are course in the upper lobes and diminished at the bases, more diminished on the left base. pt had a smear bp with soft brown stool. abdomen is soft and nontender with normoactive bowel sounds. pt surgical dressing is dry and intact. pt has sutures in posterior head. site is open to air with no drainage. ecchymosis surrounds suture site. heels, elbows, coccyx are intact, blanchable, free from breakdown. will continue to monitor
[2019-08-05] VITALS (24 sets, daily range): BP systolic 101–171; BP diastolic 42–95
[2019-08-05 02:20] LABS: BASOPHILS % (AUTO) 0.1 % (0-1); EOSINOPHILS % (AUTO) 0.3 % (0-6); HEMATOCRIT 33.4 % (35.0-45.0); HEMOGLOBIN 11.2 g/dl (12.0-16.0); LYMPHOCYTES # (AUTO) 1.4 X10'3 (1.1-4.8); MEAN CORPUSCULAR HGB CONC 33.5 g/dL (33.0-36.5); MEAN CORPUSCULAR VOLUME 95.6 FL (78-98); MEAN PLATELET VOLUME 8.1 FL (7.4-10.4); MONOCYTES # (AUTO) 1.1 X10'3 (0-0.9); MONOCYTES % (AUTO) 9.1 % (2-12); NEUTROPHILS # (AUTO) 9.3 X10'3 (1.8-7.7); NEUTROPHILS % (AUTO) 78.5 % (42-75); PLATELET COUNT 264 X10'3 (140-440); RED CELL DISTRIBUTION WIDTH 13.9 % (11.5-14.5); WHITE BLOOD COUNT 11.8 X10'3 (4.5-11.0)
[2019-08-05] MEDS: ipratropium/albuterol 3ml nebule NEB SCH ×4 (02:23→21:19)
[2019-08-05 02:28] LABS: ALBUMIN 1.9 G/DL (3.4-5.0); ANION GAP 7 (8-16); BLOOD UREA NITROGEN 11 MG/DL (7-18); BUN/CREATININE RATIO 17.7 (6.6-38.0); CALCIUM 8.8 MG/DL (8.5-10.1); CHLORIDE 101 MMOL/L (99-107); CREATININE 0.62 MG/DL (0.40-0.90); GLUCOSE 98 MG/DL (70-104); MAGNESIUM 2.7 MG/DL (1.5-2.4); POTASSIUM 4.2 MMOL/L (3.5-5.1); SODIUM 137 MMOL/L (135-145); TOTAL CARBON DIOXIDE 28.9 MMOL/L (24-32); eGFR > 90 ML/MIN
[2019-08-05] MEDS: amiodarone/D5 360MG/200ML BAG 200 ML IV SCH ×4 (02:32→18:06)
[2019-08-05] MEDS: pantoprazole 40mg Tablet.DR PO SCH (08:32)
[2019-08-05] MEDS: docusate sod 100mg capsule PO SCH ×2 (08:32→19:18)
[2019-08-05] MEDS: aspirin 325mg tablet, delayed-release (Ecotrin) PO SCH (08:32)
--- NOTE | 2019-08-05 11:12 | NUR ---
Patient went into SVT earlier this morning; notified immediately. Patient was stable, but uncomfortable and SOB. Patient on AMIO at 0.[address] Flores ordered Digoxin. Dr. Quintanilla at bedside just now to evaluate patient. He states that cardiac is secondary to respiratory and the the heart is more irritable after having the pericardial window. Orders received. He also said to not give the digoxin and DC the order Addendum: 08/05/19 at 1116 by Paxton Chatman RN Dr Quintanilla also stated to keep the amio drip running while patient is getting PO amio, untill further notice
[2019-08-05] MEDS ORDERED: digoxin 250mcg/ml 2ml ampule IV SCH (16:00)
--- NOTE | 2019-08-05 18:44 | NUR ---
Patient in room CICU 2013. I have received report from soni ricci and had the opportunity to ask questions and assume patient care.
[2019-08-05] MEDS: amiodarone 200mg tablet PO SCH (19:02)
[2019-08-05] MEDS: ibuprofen 200mg tablet PO SCH (19:03)
--- NOTE | 2019-08-05 19:45 | NUR ---
pt is A&O x 4. pt is on bipap. patient lungs are course in the upper lobes and diminished at the bases, more diminished on the left base. no bm. abdomen is soft and nontender with normoactive bowel sounds. pt has sutures in posterior head. site is open to air with no drainage. ecchymosis surrounds suture site. heels, elbows, coccyx are intact, blanchable, free from breakdown. bilateral buttocks is red but blanchable. will continue to monitor
[2019-08-05] MEDS ORDERED: diltiazem-NS 100mg/100ml 125 ML IV SCH (20:05)
[2019-08-05] MEDS ORDERED: metoprolol tartrate 1mg/ml inj IV ONE ×2 (20:05)
--- NOTE | 2019-08-05 20:09 | NUR ---
pt hr went to 180 with a bp 202/115. plywood matcher rell at bedside. metoprolol 2.5 mg push ordered and given. Cardizem drip ordered to keep bp under 130 systolic. hr rate 68 and bp is 122/73 after metoprolol push. will continue to monitor
[2019-08-05] MEDS: diltiazem-NS 100mg/100ml 100 ML IV SCH (20:50)
[2019-08-05] MEDS: normal saline 1000ml 1,000 ML IV SCH (22:13)
[2019-08-06] VITALS (24 sets, daily range): BP systolic 129–165; BP diastolic 68–97
[2019-08-06 02:34] LABS: BASOPHILS % (AUTO) 0.1 % (0-1); EOSINOPHILS % (AUTO) 0.1 % (0-6); HEMATOCRIT 34.4 % (35.0-45.0); HEMOGLOBIN 11.4 g/dl (12.0-16.0); LYMPHOCYTES # (AUTO) 1.4 X10'3 (1.1-4.8); LYMPHOCYTES % (AUTO) 12.5 % (21-51); MEAN CORPUSCULAR HEMOGLOBIN 31.8 PG (27.0-31.0); MEAN CORPUSCULAR HGB CONC 33.2 g/dL (33.0-36.5); MEAN CORPUSCULAR VOLUME 95.7 FL (78-98); MEAN PLATELET VOLUME 8.2 FL (7.4-10.4); MONOCYTES # (AUTO) 0.8 X10'3 (0-0.9); MONOCYTES % (AUTO) 6.7 % (2-12); NEUTROPHILS # (AUTO) 9.3 X10'3 (1.8-7.7); NEUTROPHILS % (AUTO) 80.6 % (42-75); PLATELET COUNT 289 X10'3 (140-440); RED BLOOD COUNT 3.59 X10'6 (4.20-5.60); RED CELL DISTRIBUTION WIDTH 13.8 % (11.5-14.5); WHITE BLOOD COUNT 11.5 X10'3 (4.5-11.0)
[2019-08-06] MEDS: amiodarone/D5 360MG/200ML BAG 200 ML IV SCH ×4 (02:48→21:00)
[2019-08-06 03:02] LABS: ALANINE AMINOTRANSFERASE 34 U/L (12-78); ALBUMIN 1.9 G/DL (3.4-5.0); ALBUMIN/GLOBULIN RATIO 0.4 (1.1-1.5); ALKALINE PHOSPHATASE 98 IU/L (46-116); ASPARTATE AMINO TRANSFERASE 26 U/L (10-37); BILIRUBIN,DIRECT 0.1 MG/DL (0-0.3); BILIRUBIN,TOTAL 0.3 MG/DL (0.1-1.0); MAGNESIUM 2.4 MG/DL (1.5-2.4); PHOSPHORUS 3.6 MG/DL (2.3-4.5); TOTAL PROTEIN 6.6 G/DL (6.4-8.2)
[2019-08-06] MEDS: ipratropium/albuterol 3ml nebule NEB SCH ×4 (03:32→21:15)
--- NOTE | 2019-08-06 06:30 | NUR ---
Patient in room CICU 2012. I have received report from Tamiko PEDROZA and had the opportunity to ask questions and assume patient care. Pt resting at this time on BiPAP, NSR noted. Amiodarone infusing, Cardizem off and disconnected from pt.
[2019-08-06 06:49] LABS: ANION GAP 9 (8-16); BLOOD UREA NITROGEN 12 MG/DL (7-18); CALCIUM 8.5 MG/DL (8.5-10.1); CHLORIDE 101 MMOL/L (99-107); GLUCOSE 102 MG/DL (70-104); SODIUM 138 MMOL/L (135-145); TOTAL CARBON DIOXIDE 28.3 MMOL/L (24-32); eGFR > 90 ML/MIN
[2019-08-06] MEDS: docusate sod 100mg capsule PO SCH ×3 (08:00→20:35)
[2019-08-06] MEDS: aspirin 325mg tablet, delayed-release (Ecotrin) PO SCH (08:22)
[2019-08-06] MEDS: amiodarone 200mg tablet PO SCH ×2 (08:22→20:35)
[2019-08-06] MEDS: pantoprazole 40mg Tablet.DR PO SCH (08:22)
[2019-08-06] MEDS: ibuprofen 200mg tablet PO SCH ×2 (08:22→20:35)
[2019-08-06] MEDS ORDERED: furosemide 40mg/4ml inj IV ONE (15:00)
[2019-08-06] MEDS: diltiazem-NS 100mg/100ml 100 ML IV SCH (16:40)
--- NOTE | 2019-08-06 18:40 | NUR ---
Problems reprioritized. Patient report given, questions answered & plan of care reviewed with Mac RN. Pt had one episode of tachycardia around 0830, while on NC, resolved spontaneously after BiPAP reapplied, no further episodes. Pt's daughter visited, encouraged pt to eat and work with PT. Pt watching baseball game at this time, in NAD, on BiPAP.
--- NOTE | 2019-08-06 22:50 | NUR ---
Approx 2114, pt became inceasingly confused and agitated. Attempted to calm pt, removed all unnecessary lines and triggers for the pt. Pt attempting to get out of bed, getting more aggresive, security called. Pt helped back to bed, Ativan given, restraints applied, and sitter placed at bedside. Family informed.
[2019-08-06] MEDS: normal saline 1000ml 1,000 ML IV SCH (23:48)
[2019-08-07] VITALS (25 sets, daily range): BP systolic 100–182; BP diastolic 60–88
[2019-08-07] MEDS: ipratropium/albuterol 3ml nebule NEB SCH ×4 (03:15→20:52)
[2019-08-07 03:45] LABS: BASOPHILS % (AUTO) 0.3 % (0-1); EOSINOPHILS # (AUTO) 0.1 X10'3 (0-0.9); EOSINOPHILS % (AUTO) 0.7 % (0-6); HEMATOCRIT 35.5 % (35.0-45.0); HEMOGLOBIN 11.8 g/dl (12.0-16.0); LYMPHOCYTES # (AUTO) 1.8 X10'3 (1.1-4.8); LYMPHOCYTES % (AUTO) 15.3 % (21-51); MEAN CORPUSCULAR HEMOGLOBIN 31.4 PG (27.0-31.0); MEAN CORPUSCULAR HGB CONC 33.3 g/dL (33.0-36.5); MEAN CORPUSCULAR VOLUME 94.5 FL (78-98); MEAN PLATELET VOLUME 7.5 FL (7.4-10.4); MONOCYTES % (AUTO) 8.7 % (2-12); NEUTROPHILS # (AUTO) 8.7 X10'3 (1.8-7.7); PLATELET COUNT 287 X10'3 (140-440); RED BLOOD COUNT 3.75 X10'6 (4.20-5.60); RED CELL DISTRIBUTION WIDTH 13.6 % (11.5-14.5); WHITE BLOOD COUNT 11.6 X10'3 (4.5-11.0)
[2019-08-07 04:05] LABS: ALANINE AMINOTRANSFERASE 27 U/L (12-78); ALBUMIN 1.8 G/DL (3.4-5.0); ALBUMIN/GLOBULIN RATIO 0.4 (1.1-1.5); ALKALINE PHOSPHATASE 87 IU/L (46-116); ANION GAP 5 (8-16); ASPARTATE AMINO TRANSFERASE 22 U/L (10-37); BILIRUBIN,TOTAL 0.2 MG/DL (0.1-1.0); BLOOD UREA NITROGEN 11 MG/DL (7-18); BUN/CREATININE RATIO 17.5 (6.6-38.0); CALCIUM 7.9 MG/DL (8.5-10.1); CHLORIDE 100 MMOL/L (99-107); CREATININE 0.63 MG/DL (0.40-0.90); GLUCOSE 110 MG/DL (70-104); MAGNESIUM 2.2 MG/DL (1.5-2.4); PHOSPHORUS 3.5 MG/DL (2.3-4.5); POTASSIUM 3.5 MMOL/L (3.5-5.1); SODIUM 138 MMOL/L (135-145); TOTAL CARBON DIOXIDE 33.4 MMOL/L (24-32); TOTAL PROTEIN 6.2 G/DL (6.4-8.2); eGFR > 90 ML/MIN
[2019-08-07] MEDS: amiodarone/D5 360MG/200ML BAG 200 ML IV SCH ×2 (04:16→09:08)
--- NOTE | 2019-08-07 07:00 | NUR ---
Patient in room CICU 2013. I have received report from Isha PEDROZA and had the opportunity to ask questions and assume patient care.
[2019-08-07] MEDS: docusate sod 100mg capsule PO SCH ×2 (08:00→19:43)
[2019-08-07] MEDS ORDERED: digoxin 250mcg/ml 2ml ampule IV SCH (08:00)
[2019-08-07] MEDS: ibuprofen 200mg tablet PO SCH ×2 (08:14→19:43)
[2019-08-07] MEDS: amiodarone 200mg tablet PO SCH ×2 (08:15→19:43)
[2019-08-07] MEDS: aspirin 325mg tablet, delayed-release (Ecotrin) PO SCH (08:15)
[2019-08-07] MEDS: pantoprazole 40mg Tablet.DR PO SCH (08:15)
--- NOTE | 2019-08-07 12:00 | NUR ---
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 PAtients arm is obviously swollen and cold to touch. New order received from dr. borden to start lovenox 1mg/kg BID
--- NOTE | 2019-08-07 12:13 | NUR ---
Pts. QT interval 0.56. Spoke with Dr. Flores regarding amiodarone IV infusion. Dr. Flores OK with d/c IV amiodarone since pt. is currently taking PO amiodarone 200 mg BID as well.
[2019-08-07] MEDS ORDERED: furosemide 40mg/4ml inj IV ONE (12:15)
[2019-08-07] MEDS: normal saline 1000ml 1,000 ML IV SCH (13:40)
[2019-08-07] MEDS ORDERED: enoxaparin 60mg/0.6ml syringe SUBCUT ONE (14:30)
--- NOTE | 2019-08-07 17:10 | NUR ---
Very poor PO intake, she is able to tolerate being of Bipap for meals however she is eating about 25% average. Attempted bedside visit, patient resting on Bipap and unable to perform bedside interview. Patient would benefit from ONS as it is calorie dense and easy to drink while short of breath. Notified MD of recommendation. Will attempt revisit tomorrow for food preferences. Initial: Patient s/p subxiphoid window on 06/01. Needing bipap, per bedside RN was able to have the bipap off for about an hour before going into AFIB. Appetite is fair, PO intake 25-49%. Poor intake likely d/t her needing the bipap for a significant amount of time. Pt would benefit from protein education prior to discharge once stable. Will continue to follow. Recommend: 1. continue no concentrated sweets diet 2. routine bowel care 3. Wt per rx 4. ensure enlive with meals Addendum: 08/07/19 at [address] Amended: Links added.
[2019-08-08] VITALS (24 sets, daily range): BP systolic 99–221; BP diastolic 56–111
--- NOTE | 2019-08-08 01:30 | NUR ---
Problems reprioritized. Patient report given, questions answered & plan of care reviewed with KASIA Flores.
[2019-08-08] MEDS: ipratropium/albuterol 3ml nebule NEB SCH ×4 (03:00→20:16)
--- NOTE | 2019-08-08 06:20 | NUR ---
Patient in room CICU 2013. I have received report from Mark and had the opportunity to ask questions and assume patient care.
[2019-08-08] MEDS: docusate sod 100mg capsule PO SCH ×2 (08:00→20:00)
[2019-08-08] MEDS: ibuprofen 200mg tablet PO SCH ×2 (08:36→20:35)
[2019-08-08] MEDS: pantoprazole 40mg Tablet.DR PO SCH (08:37)
[2019-08-08] MEDS: amiodarone 200mg tablet PO SCH ×2 (08:37→20:35)
[2019-08-08] MEDS: aspirin 325mg tablet, delayed-release (Ecotrin) PO SCH (08:37)
[2019-08-08 09:43] LABS: BASOPHILS % (AUTO) 0.2 % (0-1); EOSINOPHILS % (AUTO) 0.4 % (0-6); HEMATOCRIT 35.6 % (35.0-45.0); HEMOGLOBIN 11.9 g/dl (12.0-16.0); LYMPHOCYTES # (AUTO) 1.6 X10'3 (1.1-4.8); LYMPHOCYTES % (AUTO) 12.6 % (21-51); MEAN CORPUSCULAR HEMOGLOBIN 31.7 PG (27.0-31.0); MEAN CORPUSCULAR HGB CONC 33.5 g/dL (33.0-36.5); MEAN CORPUSCULAR VOLUME 94.7 FL (78-98); MEAN PLATELET VOLUME 8.3 FL (7.4-10.4); MONOCYTES # (AUTO) 0.6 X10'3 (0-0.9); NEUTROPHILS # (AUTO) 10.5 X10'3 (1.8-7.7); NEUTROPHILS % (AUTO) 81.8 % (42-75); PLATELET COUNT 335 X10'3 (140-440); RED BLOOD COUNT 3.76 X10'6 (4.20-5.60); RED CELL DISTRIBUTION WIDTH 13.3 % (11.5-14.5); WHITE BLOOD COUNT 12.8 X10'3 (4.5-11.0)
[2019-08-08 09:56] LABS: ALANINE AMINOTRANSFERASE 26 U/L (12-78); ALBUMIN 2.1 G/DL (3.4-5.0); ALBUMIN/GLOBULIN RATIO 0.5 (1.1-1.5); ALKALINE PHOSPHATASE 85 IU/L (46-116); ANION GAP 6 (8-16); ASPARTATE AMINO TRANSFERASE 21 U/L (10-37); BILIRUBIN,TOTAL 0.3 MG/DL (0.1-1.0); BLOOD UREA NITROGEN 11 MG/DL (7-18); BUN/CREATININE RATIO 19.3 (6.6-38.0); CHLORIDE 99 MMOL/L (99-107); CREATININE 0.57 MG/DL (0.40-0.90); GLUCOSE 138 MG/DL (70-104); MAGNESIUM 1.9 MG/DL (1.5-2.4); PHOSPHORUS 3.3 MG/DL (2.3-4.5); SODIUM 138 MMOL/L (135-145); TOTAL CARBON DIOXIDE 33.1 MMOL/L (24-32); TOTAL PROTEIN 6.4 G/DL (6.4-8.2); eGFR > 90 ML/MIN
[2019-08-08] MEDS: normal saline 1000ml 1,000 ML IV SCH ×2 (10:21→14:09)
[2019-08-08] MEDS: potassium Cl 20mEq/100mL bag 100 ML IV PRN ×4 (10:21→14:09)
--- NOTE | 2019-08-08 10:30 | NUR ---
Dr Moody made aware of K 3.0. Pt already on replacement protocol.
--- NOTE | 2019-08-08 11:55 | NUR ---
Report given to Sami.
--- NOTE | 2019-08-08 11:57 | NUR ---
Patient in room CICU 2013. I have received report from Marisela and had the opportunity to ask questions and assume patient care.
--- NOTE | 2019-08-08 12:10 | NUR ---
F/u: Pt seen by RD for written/verbal high protein ed w/ RD contact information provided. Pt reports no appetite recently which is not baseline and fatigues easily when eating w/ SOB. Pt agreeable to chopped meats, strawberry [place] yogurt and cottage cheese at lunch today, strawberry or vanilla ensure enlive once daily at lunches since takes so long to drink per pt. Dislikes milk. Pt requests smoothie but cannot send plain smoothie on NCS diet; RD d/w RN regarding advancement to regular diet per MD approval in order to liberalize food options given low PO. May benefit from appetite stimulant if low PO persists following RD visit. LBM 08/08. Will continue to monitor. Very poor PO intake, she is able to tolerate being of Bipap for meals however she is eating about 25% average. Attempted bedside visit, patient resting on Bipap and unable to perform bedside interview. Patient would benefit from ONS as it is calorie dense and easy to drink while short of breath. Notified MD of recommendation. Will attempt revisit tomorrow for food preferences. Recommend: 1. advance to regular diet per MD 2. routine bowel care 3. consider appetite stimulant given low appetite per MD approval 4. strawberry/vanilla ensure enlive w/ lunches 5. weekly wts Addendum: 08/08/19 at [address] Amended: Links added. Addendum: 08/08/19 at [address] F/u: Pt seen by LEVON for written/verbal high protein ed w/ RD contact information provided. Pt reports no appetite recently which is not baseline and fatigues easily when eating w/ SOB. Pt agreeable to chopped meats, strawberry [place] yogurt and cottage cheese at lunch today, strawberry or vanilla ensure enlive once daily at lunches since takes so long to drink per pt. Dislikes milk. Pt requests smoothie but only able to drink few ounces; will hold off in view of new ONS added. RD d/w RN regarding advancement to regular diet per MD approval in order to liberalize food options given low PO. May benefit from appetite stimulant if low PO persists following RD visit. LBM 08/08. Will continue to monitor.
[2019-08-08] MEDS: LORazepam 2 mg/ml vial IV PRN ×2 (12:20→22:30)
--- NOTE | 2019-08-08 12:33 | NUR ---
1210-Patient c/o difficulty catching breath, O2 sat 87 in 3lt nc. respiration 36, bp 195/88, repositioned patient high in bed. Discussed and medicated with 0.5 mg ativan. Trying anxiolytic before Bipap. ABG timed for 1400. 1235- BP 149/80, sat 89 on 3lt. Appears to be dozing. Respirations down to 25. Replacing mag IV, awaiting K IV replacement
[2019-08-08 14:55] LABS: ABG BASE EXCESS 3.1 mmol/L (-2.0-3.0); ABG HCO3 27.6 mmol/L (22.0-26.0); ABG OXYGEN SATURATION 91.9 % (95-98); ABG PCO2 (T) 41.5 mmHg (35.0-45.0); ABG PO2 (T) 62.8 mmHg (83-108); ALLEN'S TEST Positive; FCOHb 0.1 % (0.5-1.5); FLOW 3 L/min; FMetHb 0.3 % (0.3-1.12); FO2Hb 91.5 % (94-100); TOTAL HEMOGLOBIN 13.4 G/dl (12.0-16.0)
--- NOTE | 2019-08-08 15:21 | NUR ---
1415- Pt was able to sleep for 1. 5 hours. ate a little cottage cheese. ABG done pao2 62.8. Patient c/o increased WOB, using accessory muscles, requesting BIpap for a while. Reapplied Bipap at 1515 with stated relief, daughters at bedside.
--- NOTE | 2019-08-08 16:23 | NUR ---
1600- Pt seems much more comfortable with Bipap on. Resting, BP 99/56, sats 96%. continue to monitor.
[2019-08-08 17:01] LABS: MAGNESIUM 3.8 MG/DL (1.5-2.4); POTASSIUM 4.5 MMOL/L (3.5-5.1)
--- NOTE | 2019-08-08 17:15 | NUR ---
1645- Pt wants Bipap off, consulted with RT, going to attempt a salter Hi flow set at 7lt/min.
--- NOTE | 2019-08-08 18:24 | NUR ---
Problems reprioritized. Patient report given, questions answered & plan of care reviewed with Isha.
[2019-08-08] MEDS: heparin, porcine 5000 units/ml vial SQ SCH (20:36)
[2019-08-09] VITALS (24 sets, daily range): BP systolic 108–174; BP diastolic 56–103
[2019-08-09] MEDS: ipratropium/albuterol 3ml nebule NEB SCH ×4 (02:52→19:36)
[2019-08-09 04:30] LABS: BASOPHILS % (AUTO) 0.1 % (0-1); EOSINOPHILS # (AUTO) 0.1 X10'3 (0-0.9); EOSINOPHILS % (AUTO) 0.6 % (0-6); HEMATOCRIT 34.3 % (35.0-45.0); HEMOGLOBIN 11.3 g/dl (12.0-16.0); LYMPHOCYTES # (AUTO) 1.6 X10'3 (1.1-4.8); LYMPHOCYTES % (AUTO) 16.1 % (21-51); MEAN CORPUSCULAR HEMOGLOBIN 31.5 PG (27.0-31.0); MEAN CORPUSCULAR VOLUME 95.2 FL (78-98); MEAN PLATELET VOLUME 8.4 FL (7.4-10.4); MONOCYTES # (AUTO) 0.6 X10'3 (0-0.9); MONOCYTES % (AUTO) 6.2 % (2-12); NEUTROPHILS # (AUTO) 7.5 X10'3 (1.8-7.7); PLATELET COUNT 336 X10'3 (140-440); RED CELL DISTRIBUTION WIDTH 13.6 % (11.5-14.5); WHITE BLOOD COUNT 9.8 X10'3 (4.5-11.0)
[2019-08-09 04:34] LABS: ALANINE AMINOTRANSFERASE 22 U/L (12-78); ALBUMIN/GLOBULIN RATIO 0.5 (1.1-1.5); ALKALINE PHOSPHATASE 82 IU/L (46-116); ANION GAP 5 (8-16); ASPARTATE AMINO TRANSFERASE 21 U/L (10-37); BILIRUBIN,TOTAL 0.3 MG/DL (0.1-1.0); BLOOD UREA NITROGEN 13 MG/DL (7-18); CALCIUM 7.9 MG/DL (8.5-10.1); CHLORIDE 99 MMOL/L (99-107); CREATININE 0.52 MG/DL (0.40-0.90); GLUCOSE 87 MG/DL (70-104); MAGNESIUM 2.7 MG/DL (1.5-2.4); PHOSPHORUS 3.2 MG/DL (2.3-4.5); POTASSIUM 3.7 MMOL/L (3.5-5.1); SODIUM 136 MMOL/L (135-145); TOTAL CARBON DIOXIDE 32.3 MMOL/L (24-32); TOTAL PROTEIN 6.1 G/DL (6.4-8.2); eGFR > 90 ML/MIN
[2019-08-09] MEDS: potassium Cl 20mEq/100mL bag 100 ML IV PRN ×3 (05:43→09:29)
--- NOTE | 2019-08-09 06:30 | NUR ---
Patient in room CICU 2013. I have received report from Isha and had the opportunity to ask questions and assume patient care.
[2019-08-09] MEDS: ibuprofen 200mg tablet PO SCH ×2 (07:51→20:17)
[2019-08-09] MEDS: aspirin 325mg tablet, delayed-release (Ecotrin) PO SCH (07:51)
[2019-08-09] MEDS: pantoprazole 40mg Tablet.DR PO SCH (07:51)
[2019-08-09] MEDS: amiodarone 200mg tablet PO SCH ×2 (07:51→20:17)
[2019-08-09] MEDS: heparin, porcine 5000 units/ml vial SQ SCH ×2 (07:52→20:18)
[2019-08-09] MEDS: docusate sod 100mg capsule PO SCH ×2 (07:53→19:31)
[2019-08-09] MEDS: LORazepam 2 mg/ml vial IV PRN (09:29)
--- NOTE | 2019-08-09 10:15 | NUR ---
0945- patient requesting ativan, medicated. Now desaturating as she is dozing, increased flow to 10lt min. Awakens easily to deep breathe. sats will come up to 89-90%. Continue to monitor. Daughter at bedside.
[2019-08-09] MEDS: lactose-reduced food (Ensure Enlive) - 237ml bottle PO SCH (12:00)
--- NOTE | 2019-08-09 18:18 | NUR ---
Problems reprioritized. Patient report given, questions answered & plan of care reviewed with Nathalie.
--- NOTE | 2019-08-09 18:41 | NUR ---
Patient in room CICU 2013. I have received report from Scott PEDROZA and had the opportunity to ask questions and assume patient care.
[2019-08-09] MEDS: spironolactone 25 MG tablet PO SCH (20:17)
[2019-08-09] MEDS: furosemide 40mg/4ml inj IV SCH (20:18)
[2019-08-10] VITALS (22 sets, daily range): BP systolic 93–181; BP diastolic 49–85
[2019-08-10] MEDS: LORazepam 2 mg/ml vial IV PRN (02:14)
[2019-08-10 03:15] LABS: BASOPHILS % (AUTO) 0.2 % (0-1); EOSINOPHILS # (AUTO) 0.1 X10'3 (0-0.9); EOSINOPHILS % (AUTO) 0.9 % (0-6); HEMATOCRIT 34.3 % (35.0-45.0); HEMOGLOBIN 11.6 g/dl (12.0-16.0); LYMPHOCYTES # (AUTO) 1.8 X10'3 (1.1-4.8); LYMPHOCYTES % (AUTO) 16.8 % (21-51); MEAN CORPUSCULAR HEMOGLOBIN 32.1 PG (27.0-31.0); MEAN CORPUSCULAR HGB CONC 33.9 g/dL (33.0-36.5); MEAN CORPUSCULAR VOLUME 94.7 FL (78-98); MEAN PLATELET VOLUME 8.8 FL (7.4-10.4); MONOCYTES # (AUTO) 0.7 X10'3 (0-0.9); MONOCYTES % (AUTO) 6.1 % (2-12); NEUTROPHILS # (AUTO) 8.1 X10'3 (1.8-7.7); PLATELET COUNT 374 X10'3 (140-440); RED BLOOD COUNT 3.62 X10'6 (4.20-5.60); RED CELL DISTRIBUTION WIDTH 13.5 % (11.5-14.5); WHITE BLOOD COUNT 10.7 X10'3 (4.5-11.0)
[2019-08-10] MEDS: ipratropium/albuterol 3ml nebule NEB SCH ×4 (03:18→20:21)
[2019-08-10 03:19] LABS: ALANINE AMINOTRANSFERASE 23 U/L (12-78); ALBUMIN 2.2 G/DL (3.4-5.0); ALBUMIN/GLOBULIN RATIO 0.6 (1.1-1.5); ALKALINE PHOSPHATASE 82 IU/L (46-116); ANION GAP 4 (8-16); ASPARTATE AMINO TRANSFERASE 27 U/L (10-37); BILIRUBIN,TOTAL 0.3 MG/DL (0.1-1.0); BLOOD UREA NITROGEN 11 MG/DL (7-18); BUN/CREATININE RATIO 18.6 (6.6-38.0); CALCIUM 8.2 MG/DL (8.5-10.1); CHLORIDE 99 MMOL/L (99-107); CREATININE 0.59 MG/DL (0.40-0.90); GLUCOSE 92 MG/DL (70-104); POTASSIUM 3.9 MMOL/L (3.5-5.1); SODIUM 135 MMOL/L (135-145); TOTAL CARBON DIOXIDE 32.2 MMOL/L (24-32); TOTAL PROTEIN 6.2 G/DL (6.4-8.2); eGFR > 90 ML/MIN
[2019-08-10] MEDS: potassium Cl 20mEq/100mL bag 100 ML IV PRN ×2 (04:26→05:31)
--- NOTE | 2019-08-10 06:46 | NUR ---
Problems reprioritized. Patient report given, questions answered & plan of care reviewed with Pat RN.
--- NOTE | 2019-08-10 07:37 | NUR ---
UP WITH PT TO DOORWAY OF ROOM AND INTO CHAIR . RETURNED TO BEDSIDE, IN CHAIR, CALL LIGHT IN REACH.
[2019-08-10] MEDS: aspirin 325mg tablet, delayed-release (Ecotrin) PO SCH (07:51)
[2019-08-10] MEDS: pantoprazole 40mg Tablet.DR PO SCH (07:51)
[2019-08-10] MEDS: spironolactone 25 MG tablet PO SCH (07:51)
[2019-08-10] MEDS: amiodarone 200mg tablet PO SCH ×2 (07:51→20:03)
[2019-08-10] MEDS: furosemide 40mg/4ml inj IV SCH ×2 (07:51→20:03)
[2019-08-10] MEDS: ibuprofen 200mg tablet PO SCH (07:51)
[2019-08-10] MEDS: heparin, porcine 5000 units/ml vial SQ SCH ×2 (07:52→20:03)
[2019-08-10] MEDS: docusate sod 100mg capsule PO SCH ×2 (08:00→20:00)
[2019-08-10] MEDS: lactose-reduced food (Ensure Enlive) - 237ml bottle PO SCH (08:00)
--- NOTE | 2019-08-10 18:31 | NUR ---
Patient in room CICU 2013. I have received report from Sandhya RN and had the opportunity to ask questions and assume patient care.
[2019-08-11] VITALS (18 sets, daily range): BP systolic 107–156; BP diastolic 59–76
[2019-08-11] MEDS: ipratropium/albuterol 3ml nebule NEB SCH ×4 (03:19→19:35)
[2019-08-11 04:01] LABS: BASOPHILS % (AUTO) 0.3 % (0-1); EOSINOPHILS # (AUTO) 0.1 X10'3 (0-0.9); EOSINOPHILS % (AUTO) 0.7 % (0-6); HEMOGLOBIN 11.8 g/dl (12.0-16.0); LYMPHOCYTES # (AUTO) 2.1 X10'3 (1.1-4.8); LYMPHOCYTES % (AUTO) 17.2 % (21-51); MEAN CORPUSCULAR HEMOGLOBIN 30.9 PG (27.0-31.0); MEAN CORPUSCULAR HGB CONC 32.7 g/dL (33.0-36.5); MEAN CORPUSCULAR VOLUME 94.5 FL (78-98); MEAN PLATELET VOLUME 9.2 FL (7.4-10.4); MONOCYTES % (AUTO) 7.9 % (2-12); NEUTROPHILS % (AUTO) 73.9 % (42-75); PLATELET COUNT 420 X10'3 (140-440); RED BLOOD COUNT 3.81 X10'6 (4.20-5.60); RED CELL DISTRIBUTION WIDTH 13.7 % (11.5-14.5); WHITE BLOOD COUNT 12.2 X10'3 (4.5-11.0)
[2019-08-11 04:10] LABS: ALANINE AMINOTRANSFERASE 23 U/L (12-78); ALBUMIN 2.3 G/DL (3.4-5.0); ALBUMIN/GLOBULIN RATIO 0.6 (1.1-1.5); ALKALINE PHOSPHATASE 85 IU/L (46-116); ANION GAP 2 (8-16); ASPARTATE AMINO TRANSFERASE 21 U/L (10-37); BILIRUBIN,TOTAL 0.3 MG/DL (0.1-1.0); BLOOD UREA NITROGEN 12 MG/DL (7-18); BUN/CREATININE RATIO 17.9 (6.6-38.0); CALCIUM 8.4 MG/DL (8.5-10.1); CHLORIDE 100 MMOL/L (99-107); CREATININE 0.67 MG/DL (0.40-0.90); GLUCOSE 104 MG/DL (70-104); POTASSIUM 3.8 MMOL/L (3.5-5.1); SODIUM 138 MMOL/L (135-145); TOTAL CARBON DIOXIDE 36.1 MMOL/L (24-32); TOTAL PROTEIN 6.3 G/DL (6.4-8.2); eGFR 85 ML/MIN
[2019-08-11] MEDS: potassium Cl 20mEq/100mL bag 100 ML IV PRN ×2 (04:17→05:24)
--- NOTE | 2019-08-11 06:15 | NUR ---
Patient in room CICU 2013. I have received report from KASIA Zelaya and had the opportunity to ask questions and assume patient care.
--- NOTE | 2019-08-11 06:24 | NUR ---
Problems reprioritized. Patient report given, questions answered & plan of care reviewed with Araceli PEDROZA.
[2019-08-11] MEDS: docusate sod 100mg capsule PO SCH ×2 (08:00→20:00)
[2019-08-11] MEDS: lactose-reduced food (Ensure Enlive) - 237ml bottle PO SCH (08:00)
[2019-08-11] MEDS: pantoprazole 40mg Tablet.DR PO SCH (08:03)
[2019-08-11] MEDS: furosemide 40mg/4ml inj IV SCH ×2 (08:03→20:14)
[2019-08-11] MEDS: heparin, porcine 5000 units/ml vial SQ SCH ×2 (08:03→20:15)
[2019-08-11] MEDS: aspirin 325mg tablet, delayed-release (Ecotrin) PO SCH (08:03)
[2019-08-11] MEDS: amiodarone 200mg tablet PO SCH ×2 (08:03→20:17)
[2019-08-11 08:30] LABS: MAGNESIUM 2.1 MG/DL (1.5-2.4)
--- NOTE | 2019-08-11 10:34 | NUR ---
During assessment, it has been noted that patients toes are purple/blue in color. Fingers are intermittently discolored as well. 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
--- NOTE | 2019-08-11 13:17 | NUR ---
reassessment: Pt PO 25-50% avg meals day 12 now. PO continues to fluctuate. Pt seen by LEVON and noman possibility of appetite stimulant and states is trying to eat but she gets full easily. Pt is small framed and given age and wt current PO might be baseline at home. RD encouraged pt to continue trying best to eat meals. LBM 08/10. Will continue to monitor. Recommend: 1. advance to regular diet per MD; encourage PO 2. routine bowel care 3. consider appetite stimulant given low appetite per MD approval 4. strawberry/vanilla ensure enlive w/ lunches 5. weekly wts Addendum: 08/11/19 at [address] Amended: Links added.
--- NOTE | 2019-08-11 13:25 | NUR ---
Patient transferred to PCU from ICU. Myself, my orienteer, Briana, RN and a student nurse from [facility] accompanied this patient to the PCU floor. Patient was alert and oriented and in stable condition when she left and when she arrived to room 3025B. New vitals were taken and patient settled in and doing well. She has no complaints. I have also began to titrate patient's Oxygen. she was at 6L with high flow nasal cannula. I have titrated down to 5 liters as her orders are for 88-92%. Patient has been reading at 94-96% and she reports that she does not use oxygen at home.
--- NOTE | 2019-08-11 15:09 | NUR ---
Unable to start a new PIV approx 1200 hrs while still in the ICU. Ishmael RN, PCU charge nurse was able to place a 22G PIV to the left forearm with 2 attempts. Will now remove subclavian central line per MD orders.
--- NOTE | 2019-08-11 15:16 | NUR ---
Paged respiratory: Patient needs CPAP or BiPAP set up for sleeping. Order in place.
--- NOTE | 2019-08-11 17:59 | NUR ---
Orienteer documentation: I have reviewed and agree with interventions, assessments performed and documented by Adriel Warren RN. Orienteer Medication Administration: For this medication-pass time frame, medication were reviewed, dispensed, administered and documented per hospital policy by Adriel Warren RN.
--- NOTE | 2019-08-11 18:33 | NUR ---
Problems reprioritized. Patient report given, questions answered & plan of care reviewed with KASIA Prieto and KASIA Bunn "O".
--- NOTE | 2019-08-11 18:45 | NUR ---
Patient in room PCU 3025. I have received report from Araceli and Briana RNs and had the opportunity to ask questions and assume patient care with Sepideh PEDROZA.
[2019-08-12] MEDS: ipratropium/albuterol 3ml nebule NEB SCH ×4 (01:36→20:42)
[2019-08-12 03:00] VITALS: BP 128/69
[2019-08-12 05:16] LABS: BASOPHILS # (AUTO) 0.1 X10'3 (0-0.2); BASOPHILS % (AUTO) 0.5 % (0-1); EOSINOPHILS # (AUTO) 0.1 X10'3 (0-0.9); EOSINOPHILS % (AUTO) 0.5 % (0-6); HEMATOCRIT 36.8 % (35.0-45.0); HEMOGLOBIN 12.2 g/dl (12.0-16.0); LYMPHOCYTES # (AUTO) 2.2 X10'3 (1.1-4.8); LYMPHOCYTES % (AUTO) 17.8 % (21-51); MEAN CORPUSCULAR HEMOGLOBIN 31.2 PG (27.0-31.0); MEAN CORPUSCULAR HGB CONC 33.2 g/dL (33.0-36.5); MEAN CORPUSCULAR VOLUME 94.2 FL (78-98); MEAN PLATELET VOLUME 8.9 FL (7.4-10.4); MONOCYTES # (AUTO) 0.9 X10'3 (0-0.9); MONOCYTES % (AUTO) 6.8 % (2-12); NEUTROPHILS # (AUTO) 9.4 X10'3 (1.8-7.7); NEUTROPHILS % (AUTO) 74.4 % (42-75); PLATELET COUNT 453 X10'3 (140-440); RED BLOOD COUNT 3.91 X10'6 (4.20-5.60); RED CELL DISTRIBUTION WIDTH 13.8 % (11.5-14.5); WHITE BLOOD COUNT 12.6 X10'3 (4.5-11.0)
[2019-08-12 05:41] LABS: ALANINE AMINOTRANSFERASE 25 U/L (12-78); ALBUMIN 2.4 G/DL (3.4-5.0); ALBUMIN/GLOBULIN RATIO 0.6 (1.1-1.5); ALKALINE PHOSPHATASE 87 IU/L (46-116); ANION GAP 7 (8-16); ASPARTATE AMINO TRANSFERASE 29 U/L (10-37); BILIRUBIN,TOTAL 0.3 MG/DL (0.1-1.0); BLOOD UREA NITROGEN 13 MG/DL (7-18); BUN/CREATININE RATIO 19.7 (6.6-38.0); CALCIUM 8.6 MG/DL (8.5-10.1); CHLORIDE 97 MMOL/L (99-107); CREATININE 0.66 MG/DL (0.40-0.90); GLUCOSE 91 MG/DL (70-104); POTASSIUM 3.7 MMOL/L (3.5-5.1); SODIUM 137 MMOL/L (135-145); TOTAL CARBON DIOXIDE 33.3 MMOL/L (24-32); TOTAL PROTEIN 6.5 G/DL (6.4-8.2); eGFR 86 ML/MIN
[2019-08-12 06:00] VITALS: BP 116/68
--- NOTE | 2019-08-12 06:02 | NUR ---
Orientee documentation: I have reviewed and agree with all interventions, meds given,assessments performed and documented by Sepideh PEDROZA.
--- NOTE | 2019-08-12 06:29 | NUR ---
Problems reprioritized. Patient report given, questions answered & plan of care reviewed with Zia PEDROZA.
--- NOTE | 2019-08-12 06:31 | NUR ---
Problems reprioritized. Patient report given, questions answered & plan of care reviewed with Stephan PEDROZA.
[2019-08-12] MEDS: furosemide 40mg/4ml inj IV SCH ×2 (07:13→19:58)
[2019-08-12] MEDS: heparin, porcine 5000 units/ml vial SQ SCH ×2 (07:13→19:58)
[2019-08-12] MEDS: docusate sod 100mg capsule PO SCH ×2 (07:14→20:00)
[2019-08-12] MEDS: pantoprazole 40mg Tablet.DR PO SCH (07:14)
[2019-08-12] MEDS: amiodarone 200mg tablet PO SCH ×2 (07:14→19:58)
[2019-08-12] MEDS: aspirin 325mg tablet, delayed-release (Ecotrin) PO SCH (07:14)
--- NOTE | 2019-08-12 07:31 | NUR ---
PAGER ID: [phone] MESSAGE: [id number] Paulina Cisneros: JOSUE Pt BP171/64, prn hydralazine q 6 hours given at 0330, no scheduled BP meds this morning. thank you Stephan [phone]
[2019-08-12] MEDS: lactose-reduced food (Ensure Enlive) - 237ml bottle PO SCH (08:00)
[2019-08-12 11:00] VITALS: BP 121/73
--- NOTE | 2019-08-12 13:02 | NUR ---
patino catheter removed with no complications, 750 clear yellow urine documented, will encourage for pt to void
[2019-08-12 15:00] VITALS: BP 123/61
--- NOTE | 2019-08-12 18:49 | NUR ---
Patient in room PCU 3020r. I have received report from KASIA Rothman and had the opportunity to ask questions and assume patient care. Patient up in chair for bedside report and stable at this time. On 5L high flow. 22 G R FA saline locked. Will continue to monitor closely.
[2019-08-12 19:00] VITALS: BP 150/74
--- NOTE | 2019-08-12 19:02 | NUR ---
Problems reprioritized. Patient report given, questions answered & plan of care reviewed with Sridhar PEDROZA.
[2019-08-12 23:00] VITALS: BP 106/49
[2019-08-13 03:00] VITALS: BP 116/55
[2019-08-13] MEDS: ipratropium/albuterol 3ml nebule NEB SCH ×4 (03:48→20:22)
[2019-08-13 05:55] LABS: BASOPHILS # (AUTO) 0.1 X10'3 (0-0.2); BASOPHILS % (AUTO) 0.6 % (0-1); EOSINOPHILS % (AUTO) 0.4 % (0-6); HEMATOCRIT 37.6 % (35.0-45.0); HEMOGLOBIN 12.6 g/dl (12.0-16.0); LYMPHOCYTES # (AUTO) 1.9 X10'3 (1.1-4.8); LYMPHOCYTES % (AUTO) 17.6 % (21-51); MEAN CORPUSCULAR HGB CONC 33.6 g/dL (33.0-36.5); MEAN CORPUSCULAR VOLUME 95.2 FL (78-98); MEAN PLATELET VOLUME 9.3 FL (7.4-10.4); MONOCYTES # (AUTO) 0.7 X10'3 (0-0.9); MONOCYTES % (AUTO) 6.8 % (2-12); NEUTROPHILS % (AUTO) 74.6 % (42-75); PLATELET COUNT 409 X10'3 (140-440); RED BLOOD COUNT 3.94 X10'6 (4.20-5.60); RED CELL DISTRIBUTION WIDTH 13.8 % (11.5-14.5); WHITE BLOOD COUNT 10.7 X10'3 (4.5-11.0)
[2019-08-13 06:00] VITALS: BP 110/68
--- NOTE | 2019-08-13 06:00 | NUR ---
Patient in room PCU 3013. I have received report from Sridhar PEDROZA and had the opportunity to ask questions and assume patient care.
--- NOTE | 2019-08-13 06:10 | NUR ---
Problems reprioritized. Patient report given, questions answered & plan of care reviewed with Andi PEDROZA and Marlys RN
[2019-08-13 06:30] LABS: ANION GAP 8 (8-16); BLOOD UREA NITROGEN 17 MG/DL (7-18); BUN/CREATININE RATIO 22.1 (6.6-38.0); CALCIUM 8.7 MG/DL (8.5-10.1); CHLORIDE 98 MMOL/L (99-107); CREATININE 0.77 MG/DL (0.40-0.90); GLUCOSE 82 MG/DL (70-104); POTASSIUM 3.2 MMOL/L (3.5-5.1); SODIUM 140 MMOL/L (135-145); TOTAL CARBON DIOXIDE 34.1 MMOL/L (24-32); eGFR 72 ML/MIN
--- NOTE | 2019-08-13 06:30 | NUR ---
Patient in room PCU 3013. I have received report from Sridhar PEDROZA/Sepideh PEDROZA and had the opportunity to ask questions and assume patient care. All patients needs met at this time.
[2019-08-13 06:31] LABS: ALANINE AMINOTRANSFERASE 29 U/L (12-78); ALBUMIN 2.6 G/DL (3.4-5.0); ALBUMIN/GLOBULIN RATIO 0.6 (1.1-1.5); ALKALINE PHOSPHATASE 91 IU/L (46-116); ASPARTATE AMINO TRANSFERASE 33 U/L (10-37); BILIRUBIN,TOTAL 0.4 MG/DL (0.1-1.0); TOTAL PROTEIN 6.8 G/DL (6.4-8.2)
--- NOTE | 2019-08-13 06:36 | NUR ---
Orientee documentation: I have reviewed and agree with all interventions, assessments performed and documented by KASIA Bunn .
[2019-08-13] MEDS: docusate sod 100mg capsule PO SCH ×2 (08:00→20:00)
[2019-08-13] MEDS: amiodarone 200mg tablet PO SCH ×2 (08:00→20:00)
[2019-08-13] MEDS: lactose-reduced food (Ensure Enlive) - 237ml bottle PO SCH (08:00)
[2019-08-13] MEDS ORDERED: potassium Cl 20 mEq SR tablet PO PRN (08:40)
[2019-08-13] MEDS: furosemide 40mg/4ml inj IV SCH (08:47)
[2019-08-13] MEDS: heparin, porcine 5000 units/ml vial SQ SCH ×2 (08:47→20:02)
[2019-08-13] MEDS: aspirin 325mg tablet, delayed-release (Ecotrin) PO SCH (08:47)
[2019-08-13] MEDS: pantoprazole 40mg Tablet.DR PO SCH (08:47)
[2019-08-13] MEDS: potassium Cl 20 mEq SR tablet PO PRN ×3 (09:11→20:08)
--- NOTE | 2019-08-13 09:34 | NUR ---
Patient has had a persistent prolonged QT interval of 0.52, I called and notified Dr Roberto, he wants her Amiodarone 200mg to be held. I held her Amiodarone 200mg this morning.
[2019-08-13 11:00] VITALS: BP 114/51
--- NOTE | 2019-08-13 13:49 | NUR ---
Reassessment: Pt continues on NCS diet documented with average 50% PO intake with some 50-75% of meals. Pt documented to refuse all ONS except for 50% of one this morning. D/w RN who states pt reporting being too full from meals to drink ONS however RN will try to encourage. Informed RN recommendation to d/c ONS if pt wont be drinking them. D/w RN recommendation for diet advancement to heart healthy per MD approval as pt has been on NCS diet for 12 days post-op. [facility] 08/12. Will continue to follow. Recommend: 1. advance to heart healthy diet per MD; encourage PO 2. routine bowel care 3. consider appetite stimulant given low appetite per MD approval 4. strawberry/vanilla ensure enlive w/ lunches 5. weekly wts Addendum: 08/13/19 at [address] Amended: Links added.
[2019-08-13 15:00] VITALS: BP 104/52
[2019-08-13 18:00] VITALS: BP 93/46
--- NOTE | 2019-08-13 18:27 | NUR ---
Problems reprioritized. Patient report given, questions answered & plan of care reviewed with Emilio PEDROZA.
--- NOTE | 2019-08-13 18:30 | NUR ---
Patient in room PCU 3013. I have received report from KASIA Frankel and had the opportunity to ask questions and assume patient care. Pt denied CP, dizziness, n/v, and rated pain 0/10. Pt is currently in 4l of oxygen via NC high flow. However, per doctor's orders he oxygen should rsmain between 88%-92%. Currently her SPO2 is 97%. Decreasing to 3L and will continue to monitor.
--- NOTE | 2019-08-13 18:30 | NUR ---
Problems reprioritized. Patient report given, questions answered & plan of care reviewed with Emilio PEDROZA.
--- NOTE | 2019-08-13 18:45 | NUR ---
Orientee documentation: I have reviewed and agree with all interventions, assessments performed and documented by Marlys PEDROZA.
[2019-08-13 22:00] VITALS: BP 115/48
--- NOTE | 2019-08-13 22:54 | NUR ---
Per Dr. Roberto progress notes dated 08/13/19, hold amiodarone temporarily; restart lower dose tomorrow 08/14 after verifying the QT. Latest QT interval was 0.52
[2019-08-14 02:00] VITALS: BP 110/57
[2019-08-14] MEDS: ipratropium/albuterol 3ml nebule NEB SCH ×3 (02:48→14:25)
[2019-08-14 05:25] LABS: BASOPHILS # (AUTO) 0.1 X10'3 (0-0.2); BASOPHILS % (AUTO) 0.7 % (0-1); EOSINOPHILS # (AUTO) 0.1 X10'3 (0-0.9); EOSINOPHILS % (AUTO) 0.6 % (0-6); HEMATOCRIT 37.2 % (35.0-45.0); HEMOGLOBIN 12.3 g/dl (12.0-16.0); LYMPHOCYTES # (AUTO) 1.8 X10'3 (1.1-4.8); LYMPHOCYTES % (AUTO) 15.5 % (21-51); MEAN CORPUSCULAR HEMOGLOBIN 31.3 PG (27.0-31.0); MEAN CORPUSCULAR VOLUME 94.9 FL (78-98); MEAN PLATELET VOLUME 9.3 FL (7.4-10.4); MONOCYTES # (AUTO) 0.8 X10'3 (0-0.9); MONOCYTES % (AUTO) 6.6 % (2-12); NEUTROPHILS # (AUTO) 8.9 X10'3 (1.8-7.7); NEUTROPHILS % (AUTO) 76.6 % (42-75); PLATELET COUNT 444 X10'3 (140-440); RED BLOOD COUNT 3.92 X10'6 (4.20-5.60); RED CELL DISTRIBUTION WIDTH 13.9 % (11.5-14.5); WHITE BLOOD COUNT 11.6 X10'3 (4.5-11.0)
[2019-08-14 05:39] LABS: ALANINE AMINOTRANSFERASE 31 U/L (12-78); ALBUMIN 2.6 G/DL (3.4-5.0); ALBUMIN/GLOBULIN RATIO 0.6 (1.1-1.5); ALKALINE PHOSPHATASE 94 IU/L (46-116); ANION GAP 4 (8-16); ASPARTATE AMINO TRANSFERASE 30 U/L (10-37); BILIRUBIN,TOTAL 0.3 MG/DL (0.1-1.0); BLOOD UREA NITROGEN 23 MG/DL (7-18); BUN/CREATININE RATIO 26.7 (6.6-38.0); CALCIUM 9.3 MG/DL (8.5-10.1); CHLORIDE 101 MMOL/L (99-107); CREATININE 0.86 MG/DL (0.40-0.90); GLUCOSE 111 MG/DL (70-104); POTASSIUM 4.3 MMOL/L (3.5-5.1); SODIUM 143 MMOL/L (135-145); TOTAL CARBON DIOXIDE 37.7 MMOL/L (24-32); TOTAL PROTEIN 6.7 G/DL (6.4-8.2); eGFR 63 ML/MIN
[2019-08-14 06:00] VITALS: BP 101/59
--- NOTE | 2019-08-14 06:00 | NUR ---
Patient in room PCU 3013. I have received report from Emilio PEDROZA and had the opportunity to ask questions and assume patient care.
--- NOTE | 2019-08-14 06:24 | NUR ---
Problems reprioritized. Patient report given, questions answered & plan of care reviewed with KASIA العراقي. Patient stable at shift change
[2019-08-14] MEDS ORDERED: furosemide 40mg/4ml inj IV SCH (08:00)
[2019-08-14] MEDS: amiodarone 200mg tablet PO SCH (08:00)
[2019-08-14] MEDS: lactose-reduced food (Ensure Enlive) - 237ml bottle PO SCH (08:00)
[2019-08-14] MEDS: docusate sod 100mg capsule PO SCH (08:00)
[2019-08-14] MEDS: heparin, porcine 5000 units/ml vial SQ SCH (08:59)
[2019-08-14] MEDS: aspirin 325mg tablet, delayed-release (Ecotrin) PO SCH (09:00)
[2019-08-14] MEDS: pantoprazole 40mg Tablet.DR PO SCH (09:00)
[2019-08-14 11:00] VITALS: BP 106/42
--- NOTE | 2019-08-14 16:15 | NUR ---
Stable for transfer per MD order. Report called to [facility] nurse. Tele monitoring and PIV discontinued; cannula intact. All belongings sent with patient. No home meds stored in pharmacy. Discharge packet given to [facility] personnel. Transferred to [facility] via wheelchair accompanied by daughter and [facility] personnel with oxygen running at 3L on nasal cannula.
[2019-08-14] MEDS ORDERED: apixaban 5mg tablet PO SCH (20:00)
== END 2019-08-14 16:54 | DRG 270 ==
LOC: ER 10:09 → ED HOLD 13:00 → ORTHO 4S 15:20 → PCU 3S 22:50 → OBSVTOIN 07-31 10:00 → MED 3N 07-31 23:00 → CICU 2S 08-01 08:57 → PCU 3S 08-11 13:30
PROVIDERS: ADMIT Internal Medicine; ATTEND Internal Medicine
PROC: 0HQ0XZZ Repair Scalp Skin, External Approach (ICD-10-PCS; 2019-07-30)
PROC: 02BN0ZX Excision of Pericardium, Open Approach, Diagnostic (ICD-10-PCS; 2019-08-01)
PROC: B24BZZ4 Ultrasonography of Heart with Aorta, Transesophageal (ICD-10-PCS; 2019-08-01)
PROC: 02HV33Z Insertion of Infusion Device into Superior Vena Cava, Percutaneous Approach (ICD-10-PCS; 2019-08-01)
PROC: 0W9D00Z Drainage of Pericardial Cavity with Drainage Device, Open Approach (ICD-10-PCS; principal; 2019-08-01 11:36)
PROC: 5A09457 Assistance with Respiratory Ventilation, 24-96 Consecutive Hours, Continuous Positive Airway Pressure (ICD-10-PCS; 2019-08-02)
PROC: 5A09357 Assistance with Respiratory Ventilation, Less than 24 Consecutive Hours, Continuous Positive Airway Pressure (ICD-10-PCS; 2019-08-05)
PROC: 5A09357 Assistance with Respiratory Ventilation, Less than 24 Consecutive Hours, Continuous Positive Airway Pressure (ICD-10-PCS; 2019-08-06)
PROC: 5A09357 Assistance with Respiratory Ventilation, Less than 24 Consecutive Hours, Continuous Positive Airway Pressure (ICD-10-PCS; 2019-08-07)
PROC: 5A09357 Assistance with Respiratory Ventilation, Less than 24 Consecutive Hours, Continuous Positive Airway Pressure (ICD-10-PCS; 2019-08-08)
PROC: 5A09357 Assistance with Respiratory Ventilation, Less than 24 Consecutive Hours, Continuous Positive Airway Pressure (ICD-10-PCS; 2019-08-09)
PROC: 5A09357 Assistance with Respiratory Ventilation, Less than 24 Consecutive Hours, Continuous Positive Airway Pressure (ICD-10-PCS; 2019-08-10)
DX: I30.1 Infective pericarditis (principal); J96.02 Acute respiratory failure with hypercapnia; S06.0X1A Concussion with loss of consciousness of 30 minutes or less, initial encounter; J81.1 Chronic pulmonary edema; J91.8 Pleural effusion in other conditions classified elsewhere; N17.9 Acute kidney failure, unspecified; I82.B12 Acute embolism and thrombosis of left subclavian vein; I31.4 Cardiac tamponade; I31.3 Pericardial effusion (noninflammatory); N18.3 Chronic kidney disease, stage 3 (moderate); R55 Syncope and collapse; R73.9 Hyperglycemia, unspecified; Z66 Do not resuscitate; Z60.2 Problems related to living alone; I48.0 Paroxysmal atrial fibrillation; W18.39XA Other fall on same level, initial encounter; Y92.238 Other place in hospital as the place of occurrence of the external cause; I73.9 Peripheral vascular disease, unspecified; J44.9 Chronic obstructive pulmonary disease, unspecified; S01.01XA Laceration without foreign body of scalp, initial encounter; F17.210 Nicotine dependence, cigarettes, uncomplicated; Z95.0 Presence of cardiac pacemaker; Y93.89 Activity, other specified; Y99.8 Other external cause status; Z88.8 Allergy status to other drugs, medicaments and biological substances; I95.9 Hypotension, unspecified; Z99.81 Dependence on supplemental oxygen
CPT/HCPCS: 12031; 36415; 36600; 70450; 71045; 71250; 72125; 80048; 80053; 80076; 81001; 82803; 82810; 82948; 83036; 83605; 83735; 83880; 84100; 84132; 84145; 84439; 84443; 84484; 85018; 85025; 85384; 85610; 85730; 86885; 86900; 86901; 86920; 87040; 87070; 87075; 87081; 87088; 87102; 88108; 88305; 88311; 90471; 92508; 92616; 93005; 93306; 93308; 93312; 93325; 93925; 93971; 94002; 94003; 94010; 94640; 94660; 94668; 94760; 96365; 97110; 97112; 97116; 97161; 97530; 97535; 99285; A4618; A6449; A7000; A7048; C9113; C9399; G0378; J0153; J0282; J0690; J0696; J1644; J1650; J1815; J1940; J2060; J2250; J2370; J2405; J3010; J3370; J3475; J3480; J3490; J7030; J7040; J7050; J7120

== ENCOUNTER 2019-09-17 00:31 | Emergency (ER) | payer MEDICARE ==
[~2019-09-17] VITALS: Ht 162.6 cm; Wt 54.5 kg
[~2019-09-17 00:31] MED LIST: ASPI-974 PO; sodium bicarbonate (8.4%) inj. 1 MEQ/ML ML ONE
--- NOTE | 2019-09-17 00:42 | NUR ---
0031 INTUBATED 0032 1 AMP CALCIUM 0032 BICARB 0032 1 MG EPI 0035 ROSC, HR 119, BP 140/73
[2019-09-17] MEDS ORDERED: normal saline 1000ml 1,000 ML IV ONE (00:45)
[2019-09-17] MEDS ORDERED: midazolam 100mg in NS 100ml 100 ML IV PRN (00:55)
[2019-09-17 01:10] LABS: BASOPHILS % (AUTO) 0.2 % (0-1); EOSINOPHILS % (AUTO) 0 % (0-6); HEMATOCRIT 36.2 % (35.0-45.0); HEMOGLOBIN 11.9 g/dl (12.0-16.0); LYMPHOCYTES # (AUTO) 2.1 X10'3 (1.1-4.8); LYMPHOCYTES % (AUTO) 16.1 % (21-51); MEAN CORPUSCULAR HEMOGLOBIN 31.8 PG (27.0-31.0); MEAN CORPUSCULAR HGB CONC 32.7 g/dL (33.0-36.5); MEAN CORPUSCULAR VOLUME 97.1 FL (78-98); MEAN PLATELET VOLUME 9.1 FL (7.4-10.4); MONOCYTES # (AUTO) 0.4 X10'3 (0-0.9); MONOCYTES % (AUTO) 3.4 % (2-12); NEUTROPHILS # (AUTO) 10.2 X10'3 (1.8-7.7); NEUTROPHILS % (AUTO) 80.3 % (42-75); PLATELET COUNT 251 X10'3 (140-440); RED BLOOD COUNT 3.73 X10'6 (4.20-5.60); RED CELL DISTRIBUTION WIDTH 14.6 % (11.5-14.5); WHITE BLOOD COUNT 12.7 X10'3 (4.5-11.0)
[2019-09-17 01:16] LABS: ABG BASE EXCESS -0.5 mmol/L (-2.0-3.0); ABG OXYGEN SATURATION 99.3 % (95-98); ABG PCO2 (T) 57.8 mmHg (35.0-45.0); ABG PH (T) 7.288 (7.350-7.450); ABG PO2 (T) 320.6 mmHg (83-108); FCOHb 0.1 % (0.5-1.5); FMetHb 0.2 % (0.3-1.12); MINUTE VOLUME 7 L/min; PEEP 5 cm H2O; RESPIRATORY RATE 16 b/min; RESPIRATORY RATE (OBSERVED) 16 b/min; TIDAL VOLUME 400 mL; TOTAL HEMOGLOBIN 12.4 G/dl (12.0-16.0)
--- NOTE | 2019-09-17 01:19 | NUR ---
[facility] (Pt[facility]) called to clarify the med rec. KASIA Gómez, updated me that Daughter , Samira, had been called ([phone]) to update that Pt was being transferred to ER for SOB. She reports the Pt had a chest xray a few days ago and showed she had fluid in her lungs. she also reprots that the Pt had requested yesterday for her code status to be changed to DNR with selective treatment. Current POLST reads Full Code. KASIA Gómez reports the POLST cannot be changed until the MD signs it and thus Pt remains Full Code.
--- NOTE | 2019-09-17 01:19 | NUR ---
PT BP 89/68, JOSEPH NOEL AWARE AND VERBAL ORDER DOBUTAMINE AND LEVOPHED
[2019-09-17] MEDS ORDERED: DOBUTamine-DoBUTrex 500mg/D5W 250 ML IV SCH (01:20)
[2019-09-17] MEDS ORDERED: NORepinephrine 8mg/ 250ml NS 250 ML IV SCH (01:20)
[2019-09-17] MEDS ORDERED: NORepinephrine 8mg/ 250ml NS 250 ML IV ONE (01:22)
[2019-09-17] MEDS ORDERED: DOBUTamine-DoBUTrex 500mg/D5W 250 ML IV ONE (01:23)
[2019-09-17 01:24] LABS: ANION GAP 6 (8-16); BLOOD UREA NITROGEN 36 MG/DL (7-18); BUN/CREATININE RATIO 28.6 (6.6-38.0); CALCIUM 10.6 MG/DL (8.5-10.1); CHLORIDE 103 MMOL/L (99-107); CREATININE 1.26 MG/DL (0.40-0.90); GLUCOSE 302 MG/DL (70-104); POTASSIUM 5.5 MMOL/L (3.5-5.1); SODIUM 144 MMOL/L (135-145); TOTAL CARBON DIOXIDE 35.4 MMOL/L (24-32); eGFR 41 ML/MIN
[2019-09-17 01:25] LABS: ALANINE AMINOTRANSFERASE 61 U/L (12-78); ALBUMIN 2.3 G/DL (3.4-5.0); ALBUMIN/GLOBULIN RATIO 0.7 (1.1-1.5); ALKALINE PHOSPHATASE 95 IU/L (46-116); ASPARTATE AMINO TRANSFERASE 80 U/L (10-37); BILIRUBIN,TOTAL 0.2 MG/DL (0.1-1.0); TOTAL PROTEIN 5.5 G/DL (6.4-8.2)
[2019-09-17 01:31] LABS: TOTAL CELLS COUNTED 100
[2019-09-17 01:32] LABS: ELLIPTOCYTES FEW
[2019-09-17 01:33] LABS: PLATELET ESTIMATE NORMAL
[2019-09-17] MEDS ORDERED: PANT-47 PO (01:37)
[2019-09-17] MEDS ORDERED: POLY17PO10 PO (01:37)
[2019-09-17] MEDS ORDERED: FURO40TA4 PO (01:37)
[2019-09-17] MEDS ORDERED: NA P133E4 RC (01:37)
[2019-09-17] MEDS ORDERED: BISA10SU11 RC (01:37)
[2019-09-17] MEDS ORDERED: IPRA3AMP31 IH (01:37)
[2019-09-17] MEDS ORDERED: DOCU100C40 PO (01:37)
[2019-09-17] MEDS ORDERED: GUAI100L97 PO (01:37)
[2019-09-17] MEDS ORDERED: ACET-2119 PO (01:37)
[2019-09-17] MEDS ORDERED: POTA10TA36 PO (01:37)
[2019-09-17] MEDS ORDERED: ONDA4TAB6 PO (01:37)
[2019-09-17] MEDS ORDERED: AMIO200T61 PO (01:37)
[2019-09-17] MEDS ORDERED: FENTANYL-0.9 % NACL/PF 100 ML IV ONE ×2 (01:50→02:15)
--- NOTE | 2019-09-17 01:53 | NUR ---
LEVOPHED DRIP RUNNING AT 7.5ML/HR - COULD NOT CORRECT ON SPREADSHEET
[2019-09-17] MEDS ORDERED: DOBUTamine/D5W 500mg/250ml premix IV ONE (02:00)
--- NOTE | 2019-09-17 02:14 | NUR ---
CONTACTED MICKY DAUGHTER AND MYSELF AND [employer] OPERATOR SPOKE WITH DAUGHTER REGARDING CARE GIVEN AND PT CODE STATUS. DAUGHTER IS COMING HERE AND PLAN OF CARE WILL BE DISCUSSED THEN
[2019-09-17 03:24] VITALS: BP 95/66
[2019-09-17] MEDS ORDERED: LORazepam 2 mg/ml vial IV PRN (03:45)
[2019-09-17] MEDS ORDERED: morphine 10mg/0.5ml (conc. morphine) oral syringe PO PRN (03:45)
--- NOTE | 2019-09-17 03:59 | NUR ---
AFTER TALKING WITH JOSEPH NOEL AND MOSES QUINN, DAUGHTER MICKY DECIDED TO PLACE PT ON COMFORT CARE PER PATIENTS WISHES YESTERDAY AFTERNOON. PT EXTUBATED AT 0351
--- NOTE | 2019-09-17 06:37 | NUR ---
CHARLIE AND YOLANDA NOTIFIED. SAMSON HUERTA ALL QUESTIONS ANSWERED. BRADLEY STATES SHE WILL PLACE A CALL FOR PICK-UP.
== END 2019-09-17 07:29 | disposition expired ==
LOC: ER 00:31
DX: I46.9 Cardiac arrest, cause unspecified (principal); I10 Essential (primary) hypertension; J44.9 Chronic obstructive pulmonary disease, unspecified; N28.9 Disorder of kidney and ureter, unspecified; E87.5 Hyperkalemia; R73.9 Hyperglycemia, unspecified; Z88.8 Allergy status to other drugs, medicaments and biological substances; Z79.82 Long term (current) use of aspirin
CPT/HCPCS: 31500; 36415; 36556; 36600; 71045; 80053; 82803; 82948; 84484; 85018; 85025; 92950; 93005; 96374; 96375; 99291; J1250; J2250; 94002; 94760; J3010